=== PATIENT | male | born 1945 | race Caucasian/White ===

== ENCOUNTER 2016-07-16 12:32 | Inpatient (IN) | payer OTHER, MEDICARE ==
[~2016-07-16] VITALS: Ht 172.7 cm; Wt 98.0 kg
[2016-07-16 12:33] VITALS: BP 163/77; PULSE 65; RESP 16; TEMP 98.5; O2SAT 98
--- NOTE | 2016-07-16 12:45 | PD ---
Physical Exam Time Seen by Provider: 12:43 Narrative 71 y/o male presents for evaluation of elevated total bilirubin, elevated liver enzymes. Has had dark colored urine for the past several days, saw PCP yesterday, had labwork done. No known hx of liver dz. VSS Seen at triage desk. Awaiting bed placement. Data Data Last Documented VS Vital Signs Date Time Temp Pulse Resp B/P Pulse Ox O2 Delivery O2 Flow Rate FiO2 07/16/16 12:33 98.5 65 16 163/77 98 MDM Medical Record Reviewed: Yes Supervised Visit with JYOTI: Jean Hatch July 16, 2016 12:45
[2016-07-16 14:26] LABS: AUTOMATED NEUTROPHIL # 4.3 TH/MM3 (1.8-7.7); BASOPHIL # 0.1 TH/MM3 (0-0.2); BASOPHIL % 1.5 % (0.0-2.0); EOSINOPHIL # 0.3 TH/MM3 (0-0.4); EOSINOPHIL % 3.6 % (0.0-4.0); HEMATOCRIT 41.6 % (39.0-51.0); HEMO FLAGS DIFF FINAL; LYMPH % 21.8 % (9.0-44.0); LYMPHOCYTE # 1.6 TH/MM3 (1.0-4.8); MEAN CELL VOLUME 84.3 FL (80.0-100.0); MEAN CORPUSCULAR HEMOGLOBIN 28.5 PG (27.0-34.0); MEAN CORPUSCULAR HGB CONC 33.8 % (32.0-36.0); MONO % 14.1 % (0.0-8.0); PLATELET COUNT 225 TH/MM3 (150-450); RED BLOOD COUNT 4.94 MIL/MM3 (4.50-5.90); RED CELL DISTRIBUTION WIDTH 17.8 % (11.6-17.2); WHITE BLOOD COUNT 7.3 TH/MM3 (4.0-11.0)
[2016-07-16] MEDS ORDERED: LORazepam 2 MG/ML VIAL IV PUSH ONE (14:30)
[2016-07-16 14:35] LABS: APTT (PATIENT) 30.4 SEC (24.3-30.1); INTERNATIONAL NORMALIZED RATIO 1.1 RATIO
[2016-07-16 14:59] LABS: ALKALINE PHOSPHATASE 254 U/L (45-117); ALT (GPT) 1157 U/L (12-78); ANION GAP 10 MEQ/L (5-15); AST (GOT) 1238 U/L (15-37); BICARBONATE 23.5 MEQ/L (21.0-32.0); BLOOD UREA NITROGEN 22 MG/DL (7-18); CHLORIDE 100 MEQ/L (98-107); GLOMERULAR FILTRATION RATE 39 ML/MIN (>89); INDIRECT BILIRUBIN 4.1 MG/DL (0.0-0.8); SODIUM (NA) 133 MEQ/L (136-145); TOTAL BILIRUBIN ADULT 8.7 MG/DL (0.2-1.0)
--- NOTE | 2016-07-16 15:00 | RADRPT ---
EXAM DATE/TIME: 07/16/2016 14:29 [facility] COMPARISON: No previous studies available for comparison. INDICATIONS : Jaundice. Epigastric pain. ORAL CONTRAST: No oral contrast ingested. RADIATION DOSE: 10.27 CTDIvol (mGy) MEDICAL HISTORY : Cardiovascular disease. Hypertension. Diabetes mellitus type 2. SURGICAL HISTORY : CABG ENCOUNTER: Initial ACUITY: 1 day PAIN SCALE: 2/10 LOCATION: TECHNIQUE: Volumetric scanning of the abdomen and pelvis was performed. Using automated exposure control and ad justment of the mA and/or kV according to patient size, radiation dose was kept as low as reasonably achievable to obtain optimal diagnostic quality images. FINDINGS: LOWER LUNGS: The visualized lower lungs are clear. The heart is normal in size. Coronary artery atherosclerotic ca lcifications. LIVER: Homogeneous density without lesion. There is no dilation of the biliary tree. No calcified gallston es. The gallbladder is decompressed. SPLEEN: Normal size without lesion. PANCREAS: Within normal limits. KIDNEYS: Normal in size and shape. There is no mass, stone, or hydronephrosis. ADRENAL GLANDS: Within normal limits. VASCULAR: There is no aortic aneurysm. BOWEL/MESENTERY: A 1 cm fat containing structure is seen at the level of the ampulla within the duodenum. No mass effe ct. No obstruction of the biliary tree. The bowel structures show no dilatation. Colon, small bowel, and stomach are unremarkable. No free air or free fluid. ABDOMINAL WALL: Within normal limits. RETROPERITONEUM: There is no lymphadenopathy. BLADDER: No wall thickening or mass. REPRODUCTIVE: Within normal limits. INGUINAL: There is no lymphadenopathy or hernia. MUSCULOSKELETAL: Within normal limits for patient age. CONCLUSION: 1. No dilatation of the biliary tree. 2. 1 cm fat containing structure associated with the duodenum near the ampulla. This could relate to ingested material such as a pill fragment or could relate to a lipoma of the ampulla. No obstruction of the biliary tree or bowel is seen. Masoud José Jr., MD on July 16, 2016 at 14:53 Board Certified Radiologist. This report was verified electronically.
--- NOTE | 2016-07-16 15:44 | PD ---
HPI Chief Complaint: Abnormal Results Time Seen by Provider: 14:24 Travel History International Travel<30 days: No Contact w/Intl Traveler<30days: No Traveled to known affect area: No History of Present Illness HPI This is a 71-year-old male who presents to the emergency department with jaundice that's been present for 4 days, constant, associated with nausea and decreased appetite and generalized weakness which has been worsening. He was evaluated by his primary care physician who noted that his bilirubin was in the 7 range. He had a right upper quadrant outpatient ultrasound which demonstrated gallbladder polyps. He was referred here to the emergency department for evaluation. He denies any recent travel out of the country. He says he drinks 2 beers per week. He has no history of IV drug use. He is sexually active with 1 partner over the past 6 months. He denies eating any wild mushrooms. He doesn't use Tylenol. He has had about a 15 pound weight loss over the past several months. PFSH Past Medical History Cardiovascular Problems: Yes Diabetes: Yes Patient Takes Glucophage: Yes Hypertension: Yes Thyroid Disease: Yes Tetanus Vaccination: Unknown Influenza Vaccination: No Past Surgical History Coronary Artery Bypass Graft: Yes (TRIPLE BYPASS) Social History Alcohol Use: Yes (OCCAS) Tobacco Use: No Substance Use: No Allergies-Medications (Allergen,Severity, Reaction): Coded Allergies: No Known Allergies (Unverified , 07/16/16) Review of Systems Except as stated in HPI: all other systems reviewed are Neg Physical Exam Narrative GENERAL:Well appearing, no acute distress SKIN: Jaundiced HEAD: Atraumatic. Normocephalic. EYES: Pupils equal and round. No injection or drainage. Scleral icterus. ENT: Moist mucous membranes NECK: Trachea midline. CARDIOVASCULAR: Regular rate and rhythm. No murmur appreciated. RESPIRATORY: Clear to auscultation. Breath sounds equal bilaterally. GASTROINTESTINAL: Abdomen soft, distended, tender to palpation in the epigastrium with no rebound or guarding. MUSCULOSKELETAL: No obvious deformities. NEUROLOGICAL: Awake and alert. No obvious cranial nerve deficits. Moving all extremities. PSYCHIATRIC: Appropriate mood and affect; insight and judgment normal. Data Data Last Documented VS Vital Signs Date Time Temp Pulse Resp B/P Pulse Ox O2 Delivery O2 Flow Rate FiO2 07/16/16 13:45 60 18 98 Room Air 07/16/16 12:33 98.5 163/77 Orders Complete Blood Count With Diff (07/16/16 13:57) Comprehensive Metabolic Panel (07/16/16 13:57) Prothrombin Time / Inr (Pt) (07/16/16 13:57) Act Partial Throm Time (Ptt) (07/16/16 13:57) Bilirubin Components (07/16/16 13:57) Ct Abd/Pel W/O Iv Contrast (07/16/16 ) Lipase (07/16/16 13:57) Lorazepam Inj (Ativan Inj) (07/16/16 14:30) Tylenol (Acetaminophen) (07/16/16 15:04) Diet Npo (07/16/16 Dinner) Vital Signs (Adult) KISHA.Q4H (07/16/16 15:31) Consult Gastroenterology (07/16/16 ) Ondansetron Inj (Zofran Inj) (07/16/16 15:45) Sodium Chlor 0.9% 1000 Ml Inj (Ns 1000 M (07/16/16 15:45) Comprehensive Metabolic Panel (07/17/16 06:00) Potassium, Serum (K) (07/16/16 15:31) Admit Order (Ed Use Only) (07/16/16 ) Labs Laboratory Tests Test 07/16/16 14:05 White Blood Count 7.3 TH/MM3 Red Blood Count 4.94 MIL/MM3 Hemoglobin 14.1 GM/DL Hematocrit 41.6 % Mean Corpuscular Volume 84.3 FL Mean Corpuscular Hemoglobin 28.5 PG Mean Corpuscular Hemoglobin 33.8 % Concent Red Cell Distribution Width 17.8 % Platelet Count 225 TH/MM3 Mean Platelet Volume 10.0 FL Neutrophils (%) (Auto) 59.0 % Lymphocytes (%) (Auto) 21.8 % Monocytes (%) (Auto) 14.1 % Eosinophils (%) (Auto) 3.6 % Basophils (%) (Auto) 1.5 % Neutrophils # (Auto) 4.3 TH/MM3 Lymphocytes # (Auto) 1.6 TH/MM3 Monocytes # (Auto) 1.0 TH/MM3 Eosinophils # (Auto) 0.3 TH/MM3 Basophils # (Auto) 0.1 TH/MM3 CBC Comment DIFF FINAL Differential Comment Prothrombin Time 12.0 SEC Prothromb Time International 1.1 RATIO Ratio Activated Partial 30.4 SEC Thromboplast Time Sodium Level 133 MEQ/L Potassium Level 6.0 MEQ/L Chloride Level 100 MEQ/L Carbon Dioxide Level 23.5 MEQ/L Anion Gap 10 MEQ/L Blood Urea Nitrogen 22 MG/DL Creatinine 1.75 MG/DL Estimat Glomerular Filtration 39 ML/MIN Rate Random Glucose 237 MG/DL Calcium Level 8.3 MG/DL Total Bilirubin 8.7 MG/DL Direct Bilirubin 4.6 MG/DL Indirect Bilirubin 4.1 MG/DL Aspartate Amino Transf 1238 U/L (AST/SGOT) Alanine Aminotransferase 1157 U/L (ALT/SGPT) Alkaline Phosphatase 254 U/L Total Protein 8.7 GM/DL Albumin 2.7 GM/DL Lipase 358 U/L MDM Medical Decision Making Medical Screen Exam Complete: Yes Emergency Medical Condition: Yes Interpretation(s) No leukocytosis Hyponatremia Potassium is 6. hemolyzed Creatinine is 1.7 Total bilirubin is 8.7, direct bilirubin is 4.6 and indirect bilirubin is 4.1 AST is 1238 ALT is 1157 Last 24 hours Impressions Abdomen/Pelvis CT 07/16/16 0000 Signed Impressions: Service Date/Time: Saturday, July 16, 2016 14:29 - CONCLUSION: 1. No dilatation of the biliary tree. 2. 1 cm fat containing structure associated with the duodenum near the ampulla. This could relate to ingested material such as a pill fragment or could relate to a lipoma of the ampulla. No obstruction of the biliary tree or bowel is seen. Masoud José Jr., MD Differential Diagnosis Malignancy, viral hepatitis, choledocholithiasis, drug toxicity Narrative Course This is a 71-year-old male who presents to the emergency department with painless jaundice and weight loss. He was placed on a monitor and an IV was established. Labs are obtained which demonstrate some renal insufficiency which appears chronic and elevated bilirubin as well as marked transaminitis in the thousands. Differential includes malignancy versus viral hepatitis. CT imaging is unremarkable. Patient will be admitted for GI consultation. Physician Communication Physician Communication Discussed with Dr. Rodriges Diagnosis Primary Impression: Liver failure Qualified Code: K72.90 - Liver failure without hepatic coma, unspecified chronicity Admitting Information Admitting Physician Requests: Admit Kalyn Read MD July 16, 2016 15:44
[2016-07-16] MEDS ORDERED: DEXTROSE 50% IN WATER 50 ML VIAL(D50) IV PUSH PRN (15:45)
[2016-07-16] MEDS ORDERED: ONDANSETRON HCL 4 MG/2 ML VIAL IV PUSH PRN (15:45)
[2016-07-16] MEDS ORDERED: GLUCAGON 1 MG/ML VIAL OTHER PRN (15:45)
--- NOTE | 2016-07-16 15:50 | HHI.HP ---
[facility] Non-Staff Admission Diagnosis liver failure Diagnoses: (1) Jaundice Diagnosis: Principal Chief Complaint: jaundice Travel History International Travel<30 Days: No Contact w/Intl Traveler <30 Da: No Traveled to Known Affected Are: No History of Present Illness patient is a 71 y/o male with history of CAD, hypertension and diabetes mellitus who presented to ER with jaundice. he says that he noticed that ' his color was yellowish' a few days ago. he was seen by his PCP and had some blood work done. he was called and advised to come to ER by his PCP after he was found to have elevated LFT's. he says that he's had on and off abdominal pain for the past ten days. pain is periumbilical and with no radiation. pain is associated with occasional nausea and emesis. he denies any fever, chills. no recent trips. Review of Systems Constitutional: DENIES: Fever, Weight loss, Chills, Night Sweats Eyes: DENIES: Blurred vision, Diplopia, Vision loss, Double Vision Ears, nose, mouth, throat: DENIES: Tinnitus, Vertigo, Throat pain, Epistaxis Respiratory: DENIES: Apneas, Cough, Snoring, Wheezing, Hemoptysis, Sputum production, Shortness of breath Cardiovascular: DENIES: Chest pain, Palpitations, Syncope, Dyspnea on Exertion , PND, Lower Extremity Edema, Orthopnea, Claudication Gastrointestinal: COMPLAINS OF: Abdominal pain, Nausea, DENIES: Black stools, Bloody stools, Constipation, Diarrhea, Vomiting, Difficulty Swallowing, Anorexia Genitourinary: DENIES: Urinary frequency, Urgency, Hematuria, Dysuria Musculoskeletal: DENIES: Joint pain, Muscle aches, Stiffness, Joint Swelling Integumentary: DENIES: Rash Neurologic: DENIES: Abnormal gait, Headache, Localized weakness, Paresthesias, Seizures, Speech Problems, Tremor, Poor Balance Psychiatric: DENIES: Anxiety, Confusion, Mood changes, Depression, Hallucinations, Agitation, Suicidal Ideation, Homicidal Ideation, Delusions Past Family Social History Past Medical History CAD hypertension diabetes Past Surgical History CABG Reported Medications to be verified. Allergies: Coded Allergies: No Known Allergies (Unverified , 07/16/16) Active Ordered Medications Current Medications Lorazepam (Ativan Inj) 1 mg ONCE ONCE IV PUSH Last administered on 07/16/16t 14 :42; Start 07/16/16 at 14:30; Stop 07/16/16 at 14:31; Status DC Ondansetron HCl 4 mg 4 mg Q8HR PRN IV PUSH NAUSEA; Start 07/16/16 at 15:45 Sodium Chloride (NS 1000 ml Inj) 1,000 ml @ 100 mls/hr Q10H IV ; Start 07/16/16 at 15:45 Social History quit smoking years ago. drinks occasionally. Physical Exam Vital Signs Vital Signs Date Time Temp Pulse Resp B/P Pulse Ox O2 Delivery O2 Flow Rate FiO2 07/16/16 13:45 60 18 98 Room Air 07/16/16 12:33 98.5 65 16 163/77 98 Physical Exam GENERAL: This is a well-nourished, well-developed patient, in no apparent distress. SKIN: No rashes, ecchymoses or lesions. Cool and dry. HEAD: Atraumatic. Normocephalic. No temporal or scalp tenderness. EYES: Pupils equal round and reactive. Extraocular motions intact. No scleral icterus. No injection or drainage. ENT: Nose without bleeding, purulent drainage or septal hematoma. Throat without erythema, tonsillar hypertrophy or exudate. Uvula midline. Airway patent. NECK: Trachea midline. No JVD or lymphadenopathy. Supple, nontender, no meningeal signs. CARDIOVASCULAR: Regular rate and rhythm without murmurs, gallops, or rubs. RESPIRATORY: Clear to auscultation. Breath sounds equal bilaterally. No wheezes , rales, or rhonchi. GASTROINTESTINAL: Abdomen soft, mild periumbilical tenderness, nondistended. No hepato-splenomegaly, or palpable masses. No guarding. MUSCULOSKELETAL: Extremities without clubbing, cyanosis, or edema. No joint tenderness, effusion, or edema noted. No calf tenderness. Negative Homans sign bilaterally. NEUROLOGICAL: Awake and alert. Cranial nerves II through XII intact. Motor and sensory grossly within normal limits. Five out of 5 muscle strength in all muscle groups. Normal speech. Laboratory Laboratory Tests Test 07/16/16 14:05 White Blood Count 7.3 Red Blood Count 4.94 Hemoglobin 14.1 Hematocrit 41.6 Mean Corpuscular Volume 84.3 Mean Corpuscular Hemoglobin 28.5 Mean Corpuscular Hemoglobin 33.8 Concent Red Cell Distribution Width 17.8 Platelet Count 225 Mean Platelet Volume 10.0 Neutrophils (%) (Auto) 59.0 Lymphocytes (%) (Auto) 21.8 Monocytes (%) (Auto) 14.1 Eosinophils (%) (Auto) 3.6 Basophils (%) (Auto) 1.5 Neutrophils # (Auto) 4.3 Lymphocytes # (Auto) 1.6 Monocytes # (Auto) 1.0 Eosinophils # (Auto) 0.3 Basophils # (Auto) 0.1 CBC Comment DIFF FINAL Differential Comment Prothrombin Time 12.0 Prothromb Time International 1.1 Ratio Activated Partial 30.4 Thromboplast Time Sodium Level 133 Potassium Level 6.0 Chloride Level 100 Carbon Dioxide Level 23.5 Anion Gap 10 Blood Urea Nitrogen 22 Creatinine 1.75 Estimat Glomerular Filtration 39 Rate Random Glucose 237 Calcium Level 8.3 Total Bilirubin 8.7 Direct Bilirubin 4.6 Indirect Bilirubin 4.1 Aspartate Amino Transf 1238 (AST/SGOT) Alanine Aminotransferase 1157 (ALT/SGPT) Alkaline Phosphatase 254 Total Protein 8.7 Albumin 2.7 Lipase 358 Result Diagram: 07/16/16 1405 07/16/16 1405 Imaging Last Impressions Abdomen/Pelvis CT 07/16/16 0000 Signed Impressions: Service Date/Time: Saturday, July 16, 2016 14:29 - CONCLUSION: 1. No dilatation of the biliary tree. 2. 1 cm fat containing structure associated with the duodenum near the ampulla. This could relate to ingested material such as a pill fragment or could relate to a lipoma of the ampulla. No obstruction of the biliary tree or bowel is seen. Masoud José Jr., MD Assessment and Plan Assessment and Plan A/P - jaundice will consult GI- repeat LFT's in am and check hepatitis panel. tylenol level pending. -renal insufficiency with unknown duration; start IV fluid and monitor the renal function -hyperkalemia; repeat the potassium today -CAD/ hypertension and diabetes mellitus will verify and resume home meds as appropriate. start accu-check with SSI -DVT prophylaxis with SCD's Discussed Condition With ER physician and the patient. Physician Certification 2 Midnight Certification Type: Admission for Inpatient Services Order for Inpatient Services The services are ordered in accordance with Medicare regulations or non- Medicare payer requirements, as applicable. In the case of services not specified as inpatient-only, they are appropriately provided as inpatient services in accordance with the 2-midnight benchmark. Estimated LOS (days): 2 days is the estimated time the patient will need to remain in the hospital, assuming treatment plan goals are met and no additional complications. Post-Hospital Plan: Home Kassandra García MD July 16, 2016 15:50
[2016-07-16] MEDS: SODIUM CHLOR 0.9% 1000 ML INJ 1,000 ML IV SCH (15:55)
[2016-07-16] MEDS: INSULIN ASPART SUPPLEMENTAL SCALE SQ SCH ×2 (16:00→21:00)
[2016-07-16 16:01] VITALS: BP 146/78; PULSE 59; RESP 18; O2SAT 98
[2016-07-16] MEDS ORDERED: GLIM2TAB PO (16:44)
[2016-07-16] MEDS ORDERED: MIRT30TA PO (16:44)
[2016-07-16] MEDS ORDERED: METO50TA PO (16:44)
[2016-07-16] MEDS ORDERED: ASPI81CH CHEW (16:44)
[2016-07-16] MEDS ORDERED: ATOR40TA16 PO (16:44)
[2016-07-16] MEDS ORDERED: LEVO25TA4 PO (16:44)
[2016-07-16] MEDS ORDERED: METF500T PO (16:44)
[2016-07-16] MEDS ORDERED: ENAL10TA PO (16:44)
[2016-07-16] MEDS ORDERED: PANT40TA3 PO (16:44)
[2016-07-16 18:00] VITALS: BP 169/81; PULSE 57; RESP 20; TEMP 98.6; O2SAT 98
[2016-07-16 20:00] VITALS: BP_SYST 149; BP_DIAS 62; BP_DIAS 72; PULSE 59; RESP 20; TEMP 99.1; O2SAT 96
--- NOTE | 2016-07-16 20:12 | MB ---
cc: FELIX LEON MD, MOHAMMADREZA MD DATE OF CONSULTATION 07/16/16 Patient viral [facility] REASON FOR CONSULTATION Elevated liver function tests and icterus. HISTORY OF PRESENT ILLNESS Mr. Graham is a 71-year-old with no previous history of liver disease who presents with three-day history of jaundice and dark colored urine. He says for this he called his PCP's office. Blood work was done which revealed significant elevation in liver function test and he was referred to the hospital. He says he is not really having any abdominal pain. He is having no other GI symptoms. He says he has lost some weight, which he does not think is intentional. PAST MEDICAL HISTORY 1. Coronary artery disease, 2. Hypertension, 3. Diabetes, 4. Elevated cholesterol. PAST SURGICAL HISTORY Coronary artery bypass surgery. ALLERGIES None documented MEDICATIONS 1. Lorazepam. 2. Zofran. 3. One aspirin daily 4. Cholesterol medicine None of his medicines have changed recently. I do not have his exact list of medicines at this time. SOCIAL HISTORY Drinks two beers daily. No tobacco reported. PHYSICAL EXAMINATION GENERAL: A well-nourished man in no apparent distress. He is deeply icteric but otherwise asymptomatic. HEAD/NECK: Icteric sclerae. CHEST: Bilateral air entry with rales. ABDOMEN: Soft, obese, nontender. No hepatosplenomegaly. Bowel sounds are present. PORTFOLIO DIRECTOR: Exam is nonfocal. RECTAL: Exam deferred at this time. LABORATORY DATA Potassium of 4.3, creatinine 1.7, total bilirubin 8.7, AST 1238, ALT 1157, alkaline phosphatase 254, lipase 358, INR 1.1, platelets 225. Hepatic serologies are pending. IMAGING STUDIES CT of the abdomen and pelvis reveals no dilatation of the biliary tree. The liver itself appears normal. IMPRESSION Acute hepatitis. RECOMMENDATIONS Etiology of his liver function elevation is not clear. There is no history of any substance abuse. He does not drink significant alcohol. Acute viral hepatitis needs to be ruled out. AAYUSH panel has also been ordered. We will also check for CMV and EBV viruses. Acetaminophen levels are undetectable. Ultrasound of the liver has also been ordered. Continue to monitor labs carefully. We will follow with you. Thank you for this referral. MD HERMINIO Graham /5:44 PM /8:04 PM
[2016-07-16] MEDS: ENALAPRIL MALEATE 10 MG TAB PO SCH (20:19)
[2016-07-16] MEDS: METOPROLOL TARTRATE 50 MG TAB PO SCH (20:19)
[2016-07-17] VITALS (7 sets, daily range): BP systolic 140–165; BP diastolic 66–82; PULSE 48–66; RESP 16–20; TEMP 97.9–98.7; O2SAT 95–97
[2016-07-17] MEDS: SODIUM CHLOR 0.9% 1000 ML INJ 1,000 ML IV SCH ×3 (02:10→22:44)
[2016-07-17] MEDS: LEVOTHYROXINE SODIUM 25 MCG TAB PO SCH (06:58)
[2016-07-17] MEDS: INSULIN ASPART SUPPLEMENTAL SCALE SQ SCH ×4 (06:59→22:44)
[2016-07-17 08:16] LABS: ALKALINE PHOSPHATASE 184 U/L (45-117); ALT (GPT) 1034 U/L (12-78); ANION GAP 9 MEQ/L (5-15); AST (GOT) 1284 U/L (15-37); BICARBONATE 22.4 MEQ/L (21.0-32.0); BLOOD UREA NITROGEN 19 MG/DL (7-18); CHLORIDE 108 MEQ/L (98-107); GLOMERULAR FILTRATION RATE 48 ML/MIN (>89); POTASSIUM 3.9 MEQ/L (3.5-5.1); SODIUM (NA) 139 MEQ/L (136-145); TOTAL BILIRUBIN ADULT 7.5 MG/DL (0.2-1.0)
--- NOTE | 2016-07-17 08:44 | HHI.PR ---
Subjective Remarks resting comfortably with no acute distress. no abdominal pain, nausea or vomiting. Objective Vitals Vital Signs Date Time Temp Pulse Resp B/P Pulse Ox O2 Delivery O2 Flow Rate FiO2 07/17/16 04:00 98.7 58 20 140/75 97 07/17/16 00:00 98.6 52 20 165/81 97 07/16/16 20:00 99.1 59 20 149/62 96 07/16/16 20:00 99.1 59 20 149/72 96 07/16/16 18:00 98.6 57 20 169/81 98 07/16/16 16:01 59 18 146/78 98 Room Air 07/16/16 13:45 60 18 98 Room Air 07/16/16 12:33 98.5 65 16 163/77 98 I/O 07/16/16 07/16/16 07/16/16 07/17/16 07/17/16 07/17/16 07:00 15:00 23:00 07:00 15:00 23:00 Intake Total 676 ml 807 ml Output Total 1150 ml Balance 676 ml -343 ml Intake IV Total 676 ml 807 ml Output Urine Total 1150 ml Result Diagram: 07/16/16 1405 07/17/16 0700 Imaging Last Impressions Abdomen/Pelvis CT 07/16/16 0000 Signed Impressions: Service Date/Time: Saturday, July 16, 2016 14:29 - CONCLUSION: 1. No dilatation of the biliary tree. 2. 1 cm fat containing structure associated with the duodenum near the ampulla. This could relate to ingested material such as a pill fragment or could relate to a lipoma of the ampulla. No obstruction of the biliary tree or bowel is seen. Masoud José Jr., MD Objective Remarks GENERAL: This is a well-nourished, well-developed patient, in no apparent distress. CARDIOVASCULAR: Regular rate and regular rhythm without murmurs, gallops, or rubs. RESPIRATORY: Clear to auscultation. Breath sounds equal bilaterally. No wheezes , rales, or rhonchi. GASTROINTESTINAL: Abdomen soft, non-tender, nondistended. Normal, active bowel sounds MUSCULOSKELETAL: Extremities without clubbing, cyanosis, or edema. NEURO: Alert & Oriented x4 to person, place, time, situation. Moves all ext x4 Procedures none Medications and IVs Current Medications Lorazepam (Ativan Inj) 1 mg ONCE ONCE IV PUSH Last administered on 07/16/16 14 :42; Start 07/16/16 at 14:30; Stop 07/16/16 at 14:31; Status DC Ondansetron HCl 4 mg 4 mg Q8HR PRN IV PUSH NAUSEA; Start 07/16/16 at 15:45 Sodium Chloride (NS 1000 ml Inj) 1,000 ml @ 100 mls/hr Q10H IV Last administered on 07/17/16 02:10; Start 07/16/16 at 15:45 Dextrose (D50w (Vial) Inj) 25 ml UNSCH PRN IV PUSH HYPOGLYCEMIA-SEE COMMENTS; Start 07/16/16 at 15:45 Glucagon (Glucagon Inj) 1 mg UNSCH PRN OTHER HYPOGLYCEMIA-SEE COMMENTS; Start 07/16/16 at 15:45 Insulin Aspart (NovoLOG SUPPLEMENTAL SCALE) 1 ACHS SLIDING SCALE SQ ; Start 07/16/16 at 16:00 Enalapril Maleate (Vasotec) 10 mg BID PO Last administered on 07/16/16 20:19; Start 07/16/16 at 21:00 Levothyroxine Sodium (Synthroid) 25 mcg DAILY@06 PO Last administered on 06:58; Start 07/17/16 at 06:00 Metoprolol Tartrate (Lopressor) 50 mg BID PO Last administered on 07/16/16 20: 19; Start 07/16/16 at 21:00 Pantoprazole Sodium (Protonix) 40 mg DAILY PO ; Start 07/17/16 at 09:00 A/P Assessment and Plan A/P - jaundice hepatitis panel and abdominal sonogram pending- GI evaluation appreciated. -renal insufficiency with unknown duration; improved- continue to monitor the renal function. -hyperkalemia; resolved. -CAD/ hypertension ; resume home meds- will hold statin due to elevated LFT's -diabetes mellitus; hold metformin- accu-check with SSI -DVT prophylaxis with SCD's Kassandra García MD July 17, 2016 08:44
--- NOTE | 2016-07-17 09:10 | RADRPT ---
EXAM DATE/TIME: 07/17/2016 07:56 [facility] COMPARISON: CT ABDOMEN & PELVIS W/O CONTRAST, July 16, 2016, 14:29. INDICATIONS : Jaundice. MEDICAL HISTORY : Hypertension. Thyroid disease. Abdominal pain. Diabetes. SURGICAL HISTORY : CABG. ENCOUNTER: Initial ACUITY: 2 days PAIN SCORE: 0/10 LOCATION: Bilateral upper quadrant MEASUREMENTS: LIVER: 17.2 cm length COMMON DUCT: 4 mm RIGHT KIDNEY: 11.0 x 5.2 x 5.3 cm SPLEEN: 14.2 cm length FINDINGS: LIVER: Normal echotexture without focal lesion or ductal dilatation. COMMON DUCT: No intraluminal mass or stone visualized. GALLBLADDER: Minimally distended. Mild wall thickening. 4 mm polyp or wall adherent debris in the fundus region. N o pericholecystic fluid. PANCREAS: Not well seen. RIGHT KIDNEY: No hydronephrosis, stone or mass. SPLEEN: No focal lesion. CONCLUSION: Abnormal gallbladder appearance. Otherwise focally unremarkable Sinan Landrum MD on July 17, 2016 at 9:05 Board Certified Radiologist. This report was verified electronically.
[2016-07-17] MEDS: ENALAPRIL MALEATE 10 MG TAB PO SCH ×2 (09:36→22:43)
[2016-07-17] MEDS: METOPROLOL TARTRATE 50 MG TAB PO SCH ×2 (09:36→22:44)
[2016-07-17] MEDS: PANTOPRAZOLE SOD 40 MG DELAYED RELEASE TAB PO SCH (09:36)
--- NOTE | 2016-07-17 12:18 | HHI.GIFU ---
Subjective Remarks Resting in bed. No nausea, vomiting, headache, abdominal pain, diarrhea, or flu -like symptoms. He does note that he was told by a friend on Friday, that he appeared yellow. No recent shellfish, tattoos, new sexual partners. No new meds or herbal supplements. (Aracelis Lakhani) Objective Vitals I&O Vital Signs Date Time Temp Pulse Resp B/P Pulse Ox O2 Delivery O2 Flow Rate FiO2 07/17/16 08:00 98.0 55 18 157/81 95 07/17/16 04:00 98.7 58 20 140/75 97 07/17/16 00:00 98.6 52 20 165/81 97 07/16/16 20:00 99.1 59 20 149/62 96 07/16/16 20:00 99.1 59 20 149/72 96 07/16/16 18:00 98.6 57 20 169/81 98 07/16/16 16:01 59 18 146/78 98 Room Air 07/16/16 13:45 60 18 98 Room Air 07/16/16 12:33 98.5 65 16 163/77 98 I/O 07/16/16 07/16/16 07/16/16 07/17/16 07/17/16 07/17/16 07:00 15:00 23:00 07:00 15:00 23:00 Intake Total 676 ml 807 ml Output Total 1150 ml Balance 676 ml -343 ml Intake IV Total 676 ml 807 ml Output Urine Total 1150 ml Laboratory Laboratory Tests Test 07/16/16 07/16/16 07/17/16 14:05 16:00 07:00 White Blood Count 7.3 Red Blood Count 4.94 Hemoglobin 14.1 Hematocrit 41.6 Mean Corpuscular Volume 84.3 Mean Corpuscular Hemoglobin 28.5 Mean Corpuscular Hemoglobin 33.8 Concent Red Cell Distribution Width 17.8 Platelet Count 225 Mean Platelet Volume 10.0 Neutrophils (%) (Auto) 59.0 Lymphocytes (%) (Auto) 21.8 Monocytes (%) (Auto) 14.1 Eosinophils (%) (Auto) 3.6 Basophils (%) (Auto) 1.5 Neutrophils # (Auto) 4.3 Lymphocytes # (Auto) 1.6 Monocytes # (Auto) 1.0 Eosinophils # (Auto) 0.3 Basophils # (Auto) 0.1 CBC Comment DIFF FINAL Differential Comment Prothrombin Time 12.0 Prothromb Time International 1.1 Ratio Activated Partial 30.4 Thromboplast Time Sodium Level 133 139 Potassium Level 6.0 4.3 3.9 Chloride Level 100 108 Carbon Dioxide Level 23.5 22.4 Anion Gap 10 9 Blood Urea Nitrogen 22 19 Creatinine 1.75 1.45 Estimat Glomerular Filtration 39 48 Rate Random Glucose 237 78 Calcium Level 8.3 8.2 Total Bilirubin 8.7 7.5 Direct Bilirubin 4.6 Indirect Bilirubin 4.1 Aspartate Amino Transf 1238 1284 (AST/SGOT) Alanine Aminotransferase 1157 1034 (ALT/SGPT) Alkaline Phosphatase 254 184 Total Protein 8.7 7.1 Albumin 2.7 2.4 Lipase 358 Acetaminophen Level LESS THAN 2.0 Imaging Last Impressions Liver Ultrasound 07/17/16 0000 Signed Impressions: Service Date/Time: Sunday, July 17, 2016 07:56 - CONCLUSION: Abnormal gallbladder appearance. Otherwise focally unremarkable Sinan Landrum MD Abdomen/Pelvis CT 07/16/16 0000 Signed Impressions: Service Date/Time: Saturday, July 16, 2016 14:29 - CONCLUSION: 1. No dilatation of the biliary tree. 2. 1 cm fat containing structure associated with the duodenum near the ampulla. This could relate to ingested material such as a pill fragment or could relate to a lipoma of the ampulla. No obstruction of the biliary tree or bowel is seen. Masoud José Jr., MD Physical Exam HEENT: Normocephalic; atraumatic; no jaundice. CHEST: CTA CARDIAC: RRR ABDOMEN: Soft, nondistended, nontender; no hepatosplenomegaly; bowel sounds are present in all four quadrants. EXTREMITIES: No clubbing, cyanosis, or edema. SKIN: Normal; no rash; no jaundice. MBA INTERNSHIP: No focal deficits; alert and oriented times three. (Aracelis Lakhani) Assessment and Plan Plan ASSESSMENT: - Acute hepatitis, unclear etiology. Abdomen/Pelvis CT (07/16/16)----> 1. No dilatation of the biliary tree. 2. 1 cm fat containing structure associated with the duodenum near the ampulla. This could relate to ingested material such as a pill fragment or could relate to a lipoma of the ampulla. No obstruction of the biliary tree or bowel is seen. Liver US (07/17/16)----> Abnormal gallbladder appearance. Otherwise focally unremarkable. No hypotensive episodes. Hepatitis panel pending, CMV pending, AAYUSH pending. No new medications, no herbal supplements, no new tattoos, shellfish, new sexual partners. Is on a statin. Denies any flu-like symptoms, n/v, abdominal pain, diarrhea. Only symptoms is that he has been weak. Will get CPK and await liver workup. T. Bili 7.5, AST 1284, ALT 1034 , Alk Phosph 184- essentially unchanged. Statin on hold. If no improvement and liver workup negative, consider liver biopsy. PLAN: - SAURABH - Await AAYUSH, Hepatitis panel - AFP - AMA, ASMA - Alpha 1 Antitrypsin, Ceruloplasmin - Ferritin, Iron saturation - Monitor LFTs. - Avoid hepatotoxins. - If not improvement and liver workup negative, consider liver biopsy - Supportive care - Further recommendations to follow based on results of above - Pt seen and examined by Dr. Juan and myself and this note is written on his behalf (Aracelis Lakhani) Physician Comments Seen and examined with commodities broker, Unclear elevation of LFTs. Asymptomatic. Young in progress for liver disease. May need liver biopsy. MRCP ordered. (Dahlia Juan MD) Aracelis Lakhani July 17, 2016 12:18 Dahlia Juan MD July 17, 2016 13:38
[2016-07-17 14:27] LABS: CREATINE KINASE 9123 U/L (39-308); FERRITIN 3006 NG/ML (26-388); TRANSFERRIN IRON PROFILE 166 MG/DL (200-360)
[2016-07-17 14:40] LABS: CKMB 58.5 NG/ML (0.5-3.6)
[2016-07-18 03:57] VITALS: BP 115/58; PULSE 56; RESP 16; TEMP 97.8; O2SAT 97
[2016-07-18] MEDS: LEVOTHYROXINE SODIUM 25 MCG TAB PO SCH (05:55)
[2016-07-18] MEDS: INSULIN ASPART SUPPLEMENTAL SCALE SQ SCH ×4 (05:57→22:27)
[2016-07-18 07:43] LABS: ALT (GPT) 942 U/L (12-78); ANION GAP 6 MEQ/L (5-15); BLOOD UREA NITROGEN 18 MG/DL (7-18); CHLORIDE 107 MEQ/L (98-107); GLOMERULAR FILTRATION RATE 47 ML/MIN (>89); POTASSIUM 4.2 MEQ/L (3.5-5.1); SODIUM (NA) 137 MEQ/L (136-145)
[2016-07-18 07:48] LABS: ALKALINE PHOSPHATASE 183 U/L (45-117); AST (GOT) 1152 U/L (15-37); TOTAL BILIRUBIN ADULT 7.8 MG/DL (0.2-1.0)
[2016-07-18 08:00] VITALS: BP 114/63; PULSE 59; RESP 20; TEMP 97.9; O2SAT 96
[2016-07-18] MEDS: ENALAPRIL MALEATE 10 MG TAB PO SCH ×2 (08:09→22:25)
[2016-07-18] MEDS: PANTOPRAZOLE SOD 40 MG DELAYED RELEASE TAB PO SCH (08:09)
[2016-07-18] MEDS: METOPROLOL TARTRATE 50 MG TAB PO SCH ×2 (08:09→22:25)
[2016-07-18] MEDS: SODIUM CHLOR 0.9% 1000 ML INJ 1,000 ML IV SCH ×2 (08:24→17:45)
--- NOTE | 2016-07-18 09:19 | HHI.PR ---
Subjective Remarks resting comfortably with no distress. no abdominal pain, nausea or vomiting. d/w the RN. Objective Vitals Vital Signs Date Time Temp Pulse Resp B/P Pulse Ox O2 Delivery O2 Flow Rate FiO2 07/18/16 08:00 97.9 59 20 114/63 96 07/18/16 03:57 Room Air 07/18/16 03:57 97.8 56 16 115/58 97 07/17/16 23:35 97.9 55 16 159/71 95 07/17/16 23:35 Room Air 07/17/16 19:38 98.3 55 16 156/74 96 07/17/16 19:38 Room Air 07/17/16 16:00 98.0 66 18 152/66 95 07/17/16 12:00 98.3 48 20 163/82 97 I/O 07/17/16 07/17/16 07/17/16 07/18/16 07/18/16 07/18/16 07:00 15:00 23:00 07:00 15:00 23:00 Intake Total 807 ml 960 ml 240 ml 240 ml Output Total 1150 ml 600 ml 200 ml 550 ml Balance -343 ml 360 ml 40 ml -310 ml Intake Oral 960 ml 240 ml 240 ml IV Total 807 ml Output Urine Total 1150 ml 600 ml 200 ml 550 ml # Voids 1 # Bowel Movements 1 1 0 Result Diagram: 07/16/16 1405 07/18/16 0622 Imaging Last Impressions Liver Ultrasound 07/17/16 0000 Signed Impressions: Service Date/Time: Sunday, July 17, 2016 07:56 - CONCLUSION: Abnormal gallbladder appearance. Otherwise focally unremarkable Sinan Landrum MD Abdomen/Pelvis CT 07/16/16 0000 Signed Impressions: Service Date/Time: Saturday, July 16, 2016 14:29 - CONCLUSION: 1. No dilatation of the biliary tree. 2. 1 cm fat containing structure associated with the duodenum near the ampulla. This could relate to ingested material such as a pill fragment or could relate to a lipoma of the ampulla. No obstruction of the biliary tree or bowel is seen. Masoud José Jr., MD Objective Remarks GENERAL: This is a well-nourished, well-developed patient, in no apparent distress. CARDIOVASCULAR: Regular rate and regular rhythm without murmurs, gallops, or rubs. RESPIRATORY: Clear to auscultation. Breath sounds equal bilaterally. No wheezes , rales, or rhonchi. GASTROINTESTINAL: Abdomen soft, non-tender, nondistended. Normal, active bowel sounds MUSCULOSKELETAL: Extremities without clubbing, cyanosis, or edema. NEURO: Alert & Oriented x4 to person, place, time, situation. Moves all ext x4 Procedures none Medications and IVs Current Medications Lorazepam (Ativan Inj) 1 mg ONCE ONCE IV PUSH Last administered on 07/16/16 14 :42; Start 07/16/16 at 14:30; Stop 07/16/16 at 14:31; Status DC Ondansetron HCl 4 mg 4 mg Q8HR PRN IV PUSH NAUSEA; Start 07/16/16 at 15:45 Sodium Chloride (NS 1000 ml Inj) 1,000 ml @ 100 mls/hr Q10H IV Last administered on 07/18/16 08:24; Start 07/16/16 at 15:45 Dextrose (D50w (Vial) Inj) 25 ml UNSCH PRN IV PUSH HYPOGLYCEMIA-SEE COMMENTS; Start 07/16/16 at 15:45 Glucagon (Glucagon Inj) 1 mg UNSCH PRN OTHER HYPOGLYCEMIA-SEE COMMENTS; Start 07/16/16 at 15:45 Insulin Aspart (NovoLOG SUPPLEMENTAL SCALE) 1 ACHS SLIDING SCALE SQ Last administered on 07/17/16 22:44; Start 07/16/16 at 16:00 Enalapril Maleate (Vasotec) 10 mg BID PO Last administered on 07/18/16 08:09; Start 07/16/16 at 21:00 Levothyroxine Sodium (Synthroid) 25 mcg DAILY@06 PO Last administered on 05:55; Start 07/17/16 at 06:00 Metoprolol Tartrate (Lopressor) 50 mg BID PO Last administered on 07/18/16 08: 09; Start 07/16/16 at 21:00 Pantoprazole Sodium (Protonix) 40 mg DAILY PO Last administered on 07/18/16 08: 09; Start 07/17/16 at 09:00 A/P Assessment and Plan A/P - jaundice hepatitis panel suggestive of acute hepatitis B- GI following. -renal insufficiency with unknown duration; improved- continue to monitor the renal function. -hyperkalemia; resolved. -CAD/ hypertension ; resume home meds- continue to hold statin due to elevated LFT's -diabetes mellitus; hold metformin- accu-check with SSI -DVT prophylaxis with SCD's Discharge Planning awaiting GI follow-up. Kassandra García MD July 18, 2016 09:19
[2016-07-18 12:51] VITALS: BP 158/58; PULSE 56; RESP 18; TEMP 97.6; O2SAT 97
[2016-07-18 14:29] LABS: CKMB 49.2 NG/ML (0.5-3.6)
--- NOTE | 2016-07-18 15:25 | HHI.GIFU ---
Subjective Remarks Pt resting comfortably in bed. Asking when he can go home. Denies n/v, abd pain, diarrhea. (Collette Blanco) Objective Vitals I&O Vital Signs Date Time Temp Pulse Resp B/P Pulse Ox O2 Delivery O2 Flow Rate FiO2 07/18/16 12:51 97.6 56 18 158/58 97 07/18/16 08:00 97.9 59 20 114/63 96 07/18/16 03:57 Room Air 07/18/16 03:57 97.8 56 16 115/58 97 07/17/16 23:35 97.9 55 16 159/71 95 07/17/16 23:35 Room Air 07/17/16 19:38 98.3 55 16 156/74 96 07/17/16 19:38 Room Air 07/17/16 16:00 98.0 66 18 152/66 95 I/O 07/17/16 07/17/16 07/17/16 07/18/16 07/18/16 07/18/16 07:00 15:00 23:00 07:00 15:00 23:00 Intake Total 807 ml 960 ml 240 ml 240 ml Output Total 1150 ml 600 ml 200 ml 550 ml Balance -343 ml 360 ml 40 ml -310 ml Intake Oral 960 ml 240 ml 240 ml IV Total 807 ml Output Urine Total 1150 ml 600 ml 200 ml 550 ml # Voids 1 # Bowel Movements 1 1 0 Laboratory Laboratory Tests Test 07/18/16 06:22 Sodium Level 137 Potassium Level 4.2 Chloride Level 107 Carbon Dioxide Level 24.0 Anion Gap 6 Blood Urea Nitrogen 18 Creatinine 1.47 Estimat Glomerular Filtration 47 Rate Random Glucose 137 Calcium Level 8.3 Total Bilirubin 7.8 Aspartate Amino Transf 1152 (AST/SGOT) Alanine Aminotransferase 942 (ALT/SGPT) Alkaline Phosphatase 183 Total Creatine Kinase 7632 Creatine Kinase MB 49.2 Creatine Kinase MB % 0.6 Total Protein 6.7 Albumin 2.2 Imaging Last Impressions Liver Ultrasound 07/17/16 0000 Signed Impressions: Service Date/Time: Sunday, July 17, 2016 07:56 - CONCLUSION: Abnormal gallbladder appearance. Otherwise focally unremarkable Sinan Landrum MD Abdomen/Pelvis CT 07/16/16 0000 Signed Impressions: Service Date/Time: Saturday, July 16, 2016 14:29 - CONCLUSION: 1. No dilatation of the biliary tree. 2. 1 cm fat containing structure associated with the duodenum near the ampulla. This could relate to ingested material such as a pill fragment or could relate to a lipoma of the ampulla. No obstruction of the biliary tree or bowel is seen. Masoud José Jr., MD Physical Exam HEENT: Normocephalic; atraumatic; + icterus. CHEST: CTA CARDIAC: RRR ABDOMEN: Soft, obese, nontender; no hepatosplenomegaly; bowel sounds are present in all four quadrants. EXTREMITIES: No clubbing, cyanosis, or edema. SKIN: Normal; no rash; +jaundice. 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 (Collette Blanco) Assessment and Plan Plan ASSESSMENT: - Acute hepatitis B. pos for Hep B Liver US 07-17-16 ---> Abnormal gallbladder appearanceAbdomen/Pelvis CT (07/16/16)----> 1. No dilatation of the biliary tree. 2. 1 cm fat containing structure associated with the duodenum near the ampulla. This could relate to ingested material such as a pill fragment or could relate to a lipoma of the ampulla. No obstruction of the biliary tree or bowel is seen. Liver US (07/17/16)----> Abnormal gallbladder appearance. Otherwise focally unremarkable. No hypotensive episodes. Hepatitis panel pending, CMV pending, AAYUSH pending. No new medications, no herbal supplements, no new tattoos, shellfish, new sexual partners. Is on a statin. Denies any flu-like symptoms, n/v, abdominal pain, diarrhea. Only symptoms is that he has been weak. AAYUSH neg. iron 138, TIBC 232, iron sat 59.4, ferritin 3086. CPK 7632. and await liver workup. T. Bili 7.8, AST 1152, ALT 942, Alk Phosph 183 - essentially unchanged. Statin on hold. PLAN: - SAURABH - Await rest of liver w/u - Monitor LFTs. - Avoid hepatotoxins. - Supportive care - Further recommendations to follow based on results of above - Pt seen and examined by Dr. Juan and myself and this note is written on his behalf (Bella,Collette S BLOW MOLD TECHNICIAN) Physician Comments Acute Hep B. LFTs improving slowly. Continue to monitor labs. Diet as tolerated. Supportive care. Denies any risk factors for Hep B. Report to [facility]. ( Dahlia Juan MD) Collette Blanco July 18, 2016 15:25 Dahlia Juan MD July 18, 2016 15:45
[2016-07-18 16:00] VITALS: BP 144/73; PULSE 53; RESP 20; TEMP 97.4; O2SAT 97
[2016-07-18 20:15] VITALS: BP 146/72; PULSE 51; RESP 16; TEMP 98.2; O2SAT 96
[2016-07-18 23:15] VITALS: BP 166/80; PULSE 46; RESP 16; TEMP 97.9; O2SAT 97
[2016-07-19 03:55] VITALS: BP 141/66; PULSE 44; RESP 16; TEMP 97.4; O2SAT 97
[2016-07-19] MEDS: LEVOTHYROXINE SODIUM 25 MCG TAB PO SCH (05:41)
[2016-07-19] MEDS: INSULIN ASPART SUPPLEMENTAL SCALE SQ SCH ×5 (05:42→20:19)
[2016-07-19 08:00] VITALS: BP 123/65; PULSE 47; RESP 20; TEMP 97.3; O2SAT 98
--- NOTE | 2016-07-19 08:02 | HHI.PR ---
Subjective Remarks resting comfortably with no distress. denies abdominal pain, nausea or vomiting. Objective Vitals Vital Signs Date Time Temp Pulse Resp B/P Pulse Ox O2 Delivery O2 Flow Rate FiO2 07/19/16 03:55 Room Air 07/19/16 03:55 97.4 44 16 141/66 97 07/18/16 23:15 Room Air 07/18/16 23:15 97.9 46 16 166/80 97 07/18/16 20:15 Room Air 07/18/16 20:15 98.2 51 16 146/72 96 07/18/16 16:00 97.4 53 20 144/73 97 07/18/16 12:51 97.6 56 18 158/58 97 I/O 07/18/16 07/18/16 07/18/16 07/19/16 07/19/16 07/19/16 07:00 15:00 23:00 07:00 15:00 23:00 Intake Total 240 ml 720 ml 480 ml 0 ml Output Total 550 ml 250 ml Balance -310 ml 470 ml 480 ml 0 ml Intake Oral 240 ml 720 ml 480 ml 0 ml Output Urine Total 550 ml 250 ml # Voids 5 5 # Bowel Movements 0 0 1 0 Result Diagram: 07/16/16 1405 07/18/16 0622 Imaging Last Impressions Liver Ultrasound 07/17/16 0000 Signed Impressions: Service Date/Time: Sunday, July 17, 2016 07:56 - CONCLUSION: Abnormal gallbladder appearance. Otherwise focally unremarkable Sinan Landrum MD Abdomen/Pelvis CT 07/16/16 0000 Signed Impressions: Service Date/Time: Saturday, July 16, 2016 14:29 - CONCLUSION: 1. No dilatation of the biliary tree. 2. 1 cm fat containing structure associated with the duodenum near the ampulla. This could relate to ingested material such as a pill fragment or could relate to a lipoma of the ampulla. No obstruction of the biliary tree or bowel is seen. Masoud José Jr., MD Objective Remarks GENERAL: This is a well-nourished, well-developed patient, in no apparent distress. CARDIOVASCULAR: Regular rate and regular rhythm without murmurs, gallops, or rubs. RESPIRATORY: Clear to auscultation. Breath sounds equal bilaterally. No wheezes , rales, or rhonchi. GASTROINTESTINAL: Abdomen soft, non-tender, nondistended. Normal, active bowel sounds MUSCULOSKELETAL: Extremities without clubbing, cyanosis, or edema. NEURO: Alert & Oriented x4 to person, place, time, situation. Moves all ext x4 Procedures none Medications and IVs Current Medications Lorazepam (Ativan Inj) 1 mg ONCE ONCE IV PUSH Last administered on 07/16/16 14 :42; Start 07/16/16 at 14:30; Stop 07/16/16 at 14:31; Status DC Ondansetron HCl 4 mg 4 mg Q8HR PRN IV PUSH NAUSEA; Start 07/16/16 at 15:45 Sodium Chloride (NS 1000 ml Inj) 1,000 ml @ 100 mls/hr Q10H IV Last administered on 07/18/16 08:24; Start 07/16/16 at 15:45; Stop 07/18/16 at 19:50; Status DC Dextrose (D50w (Vial) Inj) 25 ml UNSCH PRN IV PUSH HYPOGLYCEMIA-SEE COMMENTS; Start 07/16/16 at 15:45 Glucagon (Glucagon Inj) 1 mg UNSCH PRN OTHER HYPOGLYCEMIA-SEE COMMENTS; Start 07/16/16 at 15:45 Insulin Aspart (NovoLOG SUPPLEMENTAL SCALE) 1 ACHS SLIDING SCALE SQ Last administered on 07/19/16 05:42; Start 07/16/16 at 16:00 Enalapril Maleate (Vasotec) 10 mg BID PO Last administered on 07/18/16 22:25; Start 07/16/16 at 21:00 Levothyroxine Sodium (Synthroid) 25 mcg DAILY@06 PO Last administered on 05:41; Start 07/17/16 at 06:00 Metoprolol Tartrate (Lopressor) 50 mg BID PO Last administered on 07/18/16 22: 25; Start 07/16/16 at 21:00 Pantoprazole Sodium (Protonix) 40 mg DAILY PO Last administered on 07/18/16 08: 09; Start 07/17/16 at 09:00 A/P Assessment and Plan A/P - jaundice hepatitis panel suggestive of acute hepatitis B- will continue to monitor LFT's. GI following. -renal insufficiency with unknown duration; improved- continue to monitor the renal function. -hyperkalemia; resolved. -CAD/ hypertension ; resume home meds- however will decrease the dose of metoprolol due to bradycardia- continue to hold statin due to elevated LFT's -diabetes mellitus; hold metformin- accu-check with SSI -DVT prophylaxis with SCD's Kassandra García MD July 19, 2016 08:02
[2016-07-19] MEDS ORDERED: METO25TA3 PO (08:08)
[2016-07-19] MEDS: PANTOPRAZOLE SOD 40 MG DELAYED RELEASE TAB PO SCH (08:28)
[2016-07-19] MEDS: ENALAPRIL MALEATE 10 MG TAB PO SCH ×2 (08:28→20:19)
[2016-07-19] MEDS: METOPROLOL TARTRATE 25 MG TAB PO SCH ×2 (08:31→20:18)
[2016-07-19 10:20] LABS: ALKALINE PHOSPHATASE 184 U/L (45-117); ALT (GPT) 1092 U/L (12-78); ANION GAP 7 MEQ/L (5-15); AST (GOT) 1322 U/L (15-37); BICARBONATE 25.6 MEQ/L (21.0-32.0); BLOOD UREA NITROGEN 18 MG/DL (7-18); CHLORIDE 104 MEQ/L (98-107); CREATINE KINASE 7185 U/L (39-308); GLOMERULAR FILTRATION RATE 46 ML/MIN (>89); POTASSIUM 4.2 MEQ/L (3.5-5.1); SODIUM (NA) 137 MEQ/L (136-145); TOTAL BILIRUBIN ADULT 9.8 MG/DL (0.2-1.0)
[2016-07-19 10:51] LABS: CKMB 52.9 NG/ML (0.5-3.6)
--- NOTE | 2016-07-19 11:19 | HHI.GIFU ---
Subjective Remarks Resting in bed. No complaints. No n/v/d. No abdominal pain. (LakhaniAracelis Tarynchrist HEART) Objective Vitals I&O Vital Signs Date Time Temp Pulse Resp B/P Pulse Ox O2 Delivery O2 Flow Rate FiO2 07/19/16 09:33 Room Air 07/19/16 08:00 97.3 47 20 123/65 98 07/19/16 03:55 Room Air 07/19/16 03:55 97.4 44 16 141/66 97 07/18/16 23:15 Room Air 07/18/16 23:15 97.9 46 16 166/80 97 07/18/16 20:15 Room Air 07/18/16 20:15 98.2 51 16 146/72 96 07/18/16 16:00 97.4 53 20 144/73 97 07/18/16 12:51 97.6 56 18 158/58 97 I/O 07/18/16 07/18/16 07/18/16 07/19/16 07/19/16 07/19/16 07:00 15:00 23:00 07:00 15:00 23:00 Intake Total 240 ml 720 ml 480 ml 0 ml Output Total 550 ml 250 ml Balance -310 ml 470 ml 480 ml 0 ml Intake Oral 240 ml 720 ml 480 ml 0 ml Output Urine Total 550 ml 250 ml # Voids 5 5 # Bowel Movements 0 0 1 0 Laboratory Laboratory Tests Test 07/19/16 08:36 Sodium Level 137 Potassium Level 4.2 Chloride Level 104 Carbon Dioxide Level 25.6 Anion Gap 7 Blood Urea Nitrogen 18 Creatinine 1.50 Estimat Glomerular Filtration 46 Rate Random Glucose 160 Calcium Level 8.5 Total Bilirubin 9.8 Aspartate Amino Transf 1322 (AST/SGOT) Alanine Aminotransferase 1092 (ALT/SGPT) Alkaline Phosphatase 184 Total Creatine Kinase 7185 Creatine Kinase MB 52.9 Creatine Kinase MB % 0.7 Total Protein 7.6 Albumin 2.5 Imaging Last Impressions Liver Ultrasound 07/17/16 0000 Signed Impressions: Service Date/Time: Sunday, July 17, 2016 07:56 - CONCLUSION: Abnormal gallbladder appearance. Otherwise focally unremarkable Sinan Landrum MD Abdomen/Pelvis CT 07/16/16 0000 Signed Impressions: Service Date/Time: Saturday, July 16, 2016 14:29 - CONCLUSION: 1. No dilatation of the biliary tree. 2. 1 cm fat containing structure associated with the duodenum near the ampulla. This could relate to ingested material such as a pill fragment or could relate to a lipoma of the ampulla. No obstruction of the biliary tree or bowel is seen. Masoud José Jr., MD Physical Exam HEENT: Normocephalic; atraumatic; + icterus. CHEST: CTA CARDIAC: RRR ABDOMEN: Soft, nontender; no hepatosplenomegaly; bowel sounds are present in all four quadrants. EXTREMITIES: No clubbing, cyanosis, or edema. SKIN: Normal; no rash; +jaundice. 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 (Aracelis Lakhani) Assessment and Plan Plan ASSESSMENT: - Acute viral hepatitis B. Abdomen/Pelvis CT (07/16/16)----> 1. No dilatation of the biliary tree. 2. 1 cm fat containing structure associated with the duodenum near the ampulla. This could relate to ingested material such as a pill fragment or could relate to a lipoma of the ampulla. No obstruction of the biliary tree or bowel is seen. Liver US (07/17/16)----> Abnormal gallbladder appearance. Otherwise focally unremarkable. No hypotensive episodes. CMV undetected, Hepatitis Bs Ag (+) and Hep B Core IgM (+), AAYUSH negative, AMA pending, ASMA negative, AFP 13.9, Alpha 1 Antitrypsin 217, Ceruloplasmin pending, Ferritin 3006, Iron saturation 59.4. No new medications, no herbal supplements, no new tattoos, shellfish, new sexual partners. Asymptomatic, although LFTs slightly increased today- T. Bili 9.8, AST 1322, ALT 1092, Alk Phosph 184. Will get HBV viral load and Hep Be Ag and start Baraclude. PLAN: - SAURABH - Baraclude 0.5mg po daily - Hep B Viral load and Be Ag - Monitor LFTs. - Avoid hepatotoxins. - Once LFTs are trending down, then he can be discharged with outpatient followup. - Pt seen and examined by Dr. Juan and myself and this note is written on his behalf (Aracelis Lakhani) Physician Comments Seen and examined with UNA, doing better but lfts worsening. Initiate baraclude at 0.5mg daily. Monitor labs. (Dahlia Juan MD) Aracelis Lakhani July 19, 2016 11:19 Dahlia Juan MD July 19, 2016 15:19
[2016-07-19 12:00] VITALS: BP 149/77; PULSE 50; RESP 20; TEMP 98; O2SAT 96
[2016-07-19 16:00] VITALS: BP 133/76; PULSE 48; RESP 18; TEMP 98.1; O2SAT 98
[2016-07-19 20:00] VITALS: BP 127/64; PULSE 52; RESP 17; TEMP 98.6; O2SAT 98
[2016-07-20] VITALS: BP 151/72; PULSE 52; RESP 18; TEMP 97.8; O2SAT 100
[2016-07-20 04:00] VITALS: BP 125/60; PULSE 46; RESP 18; TEMP 97.9; O2SAT 97
[2016-07-20] MEDS: LEVOTHYROXINE SODIUM 25 MCG TAB PO SCH (06:00)
[2016-07-20] MEDS: INSULIN ASPART SUPPLEMENTAL SCALE SQ SCH ×4 (06:00→21:42)
[2016-07-20] MEDS: ENTECAVIR 0.5 MG TAB PO SCH (06:00)
[2016-07-20 07:39] LABS: INDIRECT BILIRUBIN 2.4 MG/DL (0.0-0.8); TOTAL BILIRUBIN ADULT 10.6 MG/DL (0.2-1.0)
[2016-07-20 08:03] VITALS: BP 159/70; PULSE 48; RESP 18; TEMP 97.7; O2SAT 96
[2016-07-20] MEDS: ENALAPRIL MALEATE 10 MG TAB PO SCH ×2 (09:35→21:42)
[2016-07-20] MEDS: METOPROLOL TARTRATE 25 MG TAB PO SCH (09:35)
[2016-07-20] MEDS: PANTOPRAZOLE SOD 40 MG DELAYED RELEASE TAB PO SCH (09:35)
[2016-07-20 12:03] VITALS: BP 154/98; PULSE 51; RESP 18; TEMP 97.7; O2SAT 98
--- NOTE | 2016-07-20 12:03 | HHI.PR ---
Subjective Remarks is comfortable with no pain. no nausea or vomiting. no new complaints. Objective Vitals Vital Signs Date Time Temp Pulse Resp B/P Pulse Ox O2 Delivery O2 Flow Rate FiO2 07/20/16 08:03 97.7 48 18 159/70 96 07/20/16 04:00 97.9 46 18 125/60 97 07/20/16 00:00 97.8 52 18 151/72 100 07/19/16 20:00 Room Air 07/19/16 20:00 98.6 52 17 127/64 98 07/19/16 16:00 98.1 48 18 133/76 98 I/O 07/19/16 07/19/16 07/19/16 07/20/16 07/20/16 07/20/16 07:00 15:00 23:00 07:00 15:00 23:00 Intake Total 0 ml 1100 ml 480 ml 1440 ml Balance 0 ml 1100 ml 480 ml 1440 ml Intake Oral 0 ml 1100 ml 480 ml 1440 ml # Voids 5 12 5 4 # Bowel Movements 0 1 1 Result Diagram: 07/16/16 1405 07/19/16 0836 Imaging Last Impressions Liver Ultrasound 07/17/16 0000 Signed Impressions: Service Date/Time: Sunday, July 17, 2016 07:56 - CONCLUSION: Abnormal gallbladder appearance. Otherwise focally unremarkable Sinan Landrum MD Abdomen/Pelvis CT 07/16/16 0000 Signed Impressions: Service Date/Time: Saturday, July 16, 2016 14:29 - CONCLUSION: 1. No dilatation of the biliary tree. 2. 1 cm fat containing structure associated with the duodenum near the ampulla. This could relate to ingested material such as a pill fragment or could relate to a lipoma of the ampulla. No obstruction of the biliary tree or bowel is seen. Masoud José Jr., MD Objective Remarks GENERAL: This is a well-nourished, well-developed patient, in no apparent distress. CARDIOVASCULAR: Regular rate and regular rhythm without murmurs, gallops, or rubs. RESPIRATORY: Clear to auscultation. Breath sounds equal bilaterally. No wheezes , rales, or rhonchi. GASTROINTESTINAL: Abdomen soft, non-tender, nondistended. Normal, active bowel sounds MUSCULOSKELETAL: Extremities without clubbing, cyanosis, or edema. NEURO: Alert & Oriented x4 to person, place, time, situation. Moves all ext x4 Procedures none Medications and IVs Current Medications Lorazepam (Ativan Inj) 1 mg ONCE ONCE IV PUSH Last administered on 07/16/16 14 :42; Start 07/16/16 at 14:30; Stop 07/16/16 at 14:31; Status DC Ondansetron HCl 4 mg 4 mg Q8HR PRN IV PUSH NAUSEA; Start 07/16/16 at 15:45 Sodium Chloride (NS 1000 ml Inj) 1,000 ml @ 100 mls/hr Q10H IV Last administered on 07/18/16 08:24; Start 07/16/16 at 15:45; Stop 07/18/16 at 19:50; Status DC Dextrose (D50w (Vial) Inj) 25 ml UNSCH PRN IV PUSH HYPOGLYCEMIA-SEE COMMENTS; Start 07/16/16 at 15:45 Glucagon (Glucagon Inj) 1 mg UNSCH PRN OTHER HYPOGLYCEMIA-SEE COMMENTS; Start 07/16/16 at 15:45 Insulin Aspart (NovoLOG SUPPLEMENTAL SCALE) 1 ACHS SLIDING SCALE SQ Last administered on 07/19/16 20:19; Start 07/16/16 at 16:00 Enalapril Maleate (Vasotec) 10 mg BID PO Last administered on 07/20/16 09:35; Start 07/16/16 at 21:00 Levothyroxine Sodium (Synthroid) 25 mcg DAILY@06 PO Last administered on 06:00; Start 07/17/16 at 06:00 Metoprolol Tartrate (Lopressor) 50 mg BID PO Last administered on 07/18/16 22: 25; Start 07/16/16 at 21:00; Stop 07/19/16 at 08:01; Status DC Pantoprazole Sodium (Protonix) 40 mg DAILY PO Last administered on 07/20/16 09: 35; Start 07/17/16 at 09:00 Metoprolol Tartrate (Lopressor) 25 mg BID PO Last administered on 07/20/16 09: 35; Start 07/19/16 at 09:00 Entecavir (Baraclude) 0.5 mg DAILY@06 PO Last administered on 07/20/16 06:00; Start 07/20/16 at 06:00 A/P Assessment and Plan A/P -acute hepatitis B started on Baraclude- will continue to monitor LFT's. GI following. -renal insufficiency with unknown duration; -likely chronic- improved- f/u as outpatient. -hyperkalemia; resolved. -CAD/ hypertension ; resume home meds- hold metoprolol today due to bradycardia - continue to hold statin due to elevated LFT's -diabetes mellitus; hold metformin- accu-check with SSI -DVT prophylaxis with SCD's Discharge Planning when cleared by GI. Kassandra García MD July 20, 2016 12:03
--- NOTE | 2016-07-20 12:04 | HHI.GIFU ---
Subjective Remarks Patient feels great, stating he doesn't feel any different today than he did 2 weeks ago. He is inquiring about going home, stating he will follow up on liver enzymes as an OP (Maureen Judge) Objective Vitals I&O Vital Signs Date Time Temp Pulse Resp B/P Pulse Ox O2 Delivery O2 Flow Rate FiO2 07/20/16 08:03 97.7 48 18 159/70 96 07/20/16 04:00 97.9 46 18 125/60 97 07/20/16 00:00 97.8 52 18 151/72 100 07/19/16 20:00 Room Air 07/19/16 20:00 98.6 52 17 127/64 98 07/19/16 16:00 98.1 48 18 133/76 98 07/19/16 12:00 98.0 50 20 149/77 96 I/O 07/19/16 07/19/16 07/19/16 07/20/16 07/20/16 07/20/16 07:00 15:00 23:00 07:00 15:00 23:00 Intake Total 0 ml 1100 ml 480 ml 1440 ml Balance 0 ml 1100 ml 480 ml 1440 ml Intake Oral 0 ml 1100 ml 480 ml 1440 ml # Voids 5 12 5 4 # Bowel Movements 0 1 1 Laboratory Laboratory Tests Test 07/20/16 06:20 Total Bilirubin 10.6 Direct Bilirubin 8.2 Indirect Bilirubin 2.4 Aspartate Amino Transf 1256 (AST/SGOT) Alanine Aminotransferase 1137 (ALT/SGPT) Alkaline Phosphatase 176 Total Protein 7.7 Albumin 2.5 Imaging Last Impressions Liver Ultrasound 07/17/16 0000 Signed Impressions: Service Date/Time: Sunday, July 17, 2016 07:56 - CONCLUSION: Abnormal gallbladder appearance. Otherwise focally unremarkable Sinan Landrum MD Abdomen/Pelvis CT 07/16/16 0000 Signed Impressions: Service Date/Time: Saturday, July 16, 2016 14:29 - CONCLUSION: 1. No dilatation of the biliary tree. 2. 1 cm fat containing structure associated with the duodenum near the ampulla. This could relate to ingested material such as a pill fragment or could relate to a lipoma of the ampulla. No obstruction of the biliary tree or bowel is seen. Masoud José Jr., MD Physical Exam HEENT: Normocephalic; atraumatic; + icterus. CHEST: CTA CARDIAC: RRR ABDOMEN: Soft, nontender; no hepatosplenomegaly; bowel sounds are present in all four quadrants. EXTREMITIES: No clubbing, cyanosis, or edema. SKIN: Normal; no rash; +jaundice. COMM[employer]CIAL [employer]: No focal deficits; alert and oriented times three. (Maureen Judge) Assessment and Plan Plan ASSESSMENT: - Acute viral hepatitis B. LFTs remain high with slight elevation in bili and ALT Abdomen/Pelvis CT (07/16/16)----> 1. No dilatation of the biliary tree. 2. 1 cm fat containing structure associated with the duodenum near the ampulla. This could relate to ingested material such as a pill fragment or could relate to a lipoma of the ampulla. No obstruction of the biliary tree or bowel is seen. Liver US (07/17/16)----> Abnormal gallbladder appearance. Otherwise focally unremarkable. No hypotensive episodes. CMV undetected, Hepatitis Bs Ag (+) and Hep B Core IgM (+), AAYUSH negative, AMA pending, ASMA negative, AFP 13.9, Alpha 1 Antitrypsin 217, Ceruloplasmin pending, Ferritin 3006, Iron saturation 59.4. HBV viral load and Hep Be Ag pending. Baraclude started. No new medications, no herbal supplements, no new tattoos, shellfish, new sexual partners. Asymptomatic, although PLAN: - SAURABH - Baraclude 0.5mg po daily - Await Hep B Viral load and Be Ag - Monitor LFTs. - Avoid hepatotoxins. - iron overload, will order Hfe - LFTs in am, - Possible dc in am and close LFTs monitoring - Pt seen and examined by Dr. Juan and myself and this note is written on his behalf (Maureen Judge) Physician Comments Seen and examined by [facility], sleeping at the time I saw him. Voicing no complaints. LFTS still markedly elevated. Started on baraclude yesterday. Can dc home once lfts start to improve. (Dahlia Juan MD) Maureen Judge July 20, 2016 12:04 Dahlia Juan MD July 20, 2016 14:24
[2016-07-20 16:03] VITALS: BP 139/69; PULSE 52; RESP 18; TEMP 98.1; O2SAT 100
[2016-07-20 20:00] VITALS: BP 152/84; PULSE 54; RESP 18; TEMP 98.6; O2SAT 98
[2016-07-21] VITALS: BP 141/64; PULSE 55; RESP 18; TEMP 98; O2SAT 96
[2016-07-21 04:00] VITALS: BP 161/70; PULSE 51; RESP 20; TEMP 97.9; O2SAT 95
[2016-07-21] MEDS: LEVOTHYROXINE SODIUM 25 MCG TAB PO SCH (06:27)
[2016-07-21] MEDS: ENTECAVIR 0.5 MG TAB PO SCH (06:27)
[2016-07-21] MEDS: INSULIN ASPART SUPPLEMENTAL SCALE SQ SCH ×4 (06:29→20:55)
[2016-07-21 08:00] VITALS: BP 156/76; PULSE 50; RESP 12; TEMP 97.9; O2SAT 97
[2016-07-21 08:07] LABS: INDIRECT BILIRUBIN 2.1 MG/DL (0.0-0.8); TOTAL BILIRUBIN ADULT 10.1 MG/DL (0.2-1.0)
[2016-07-21] MEDS: PANTOPRAZOLE SOD 40 MG DELAYED RELEASE TAB PO SCH (09:22)
[2016-07-21] MEDS: ENALAPRIL MALEATE 10 MG TAB PO SCH ×2 (09:22→20:41)
--- NOTE | 2016-07-21 09:25 | HHI.PR ---
Subjective Remarks resting comfortably with no distress. no pain, nausea/ vomiting. no new complaints. d/w the RN. Objective Vitals Vital Signs Date Time Temp Pulse Resp B/P Pulse Ox O2 Delivery O2 Flow Rate FiO2 07/21/16 08:00 97.9 50 12 156/76 97 07/21/16 04:00 97.9 51 20 161/70 95 07/21/16 00:00 98.0 55 18 141/64 96 07/20/16 20:00 98.6 54 18 152/84 98 07/20/16 20:00 98 Room Air 07/20/16 16:03 98.1 52 18 139/69 100 07/20/16 12:03 97.7 51 18 154/98 98 I/O 07/20/16 07/20/16 07/20/16 07/21/16 07/21/16 07/21/16 07:00 15:00 23:00 07:00 15:00 23:00 Intake Total 1440 ml 360 ml 360 ml 0 ml Balance 1440 ml 360 ml 360 ml 0 ml Intake Oral 1440 ml 360 ml 360 ml 0 ml # Voids 4 7 1 1 # Bowel Movements 1 1 1 1 Result Diagram: 07/19/16 0836 Imaging Last Impressions Liver Ultrasound 07/17/16 0000 Signed Impressions: Service Date/Time: Sunday, July 17, 2016 07:56 - CONCLUSION: Abnormal gallbladder appearance. Otherwise focally unremarkable Sinan Landrum MD Abdomen/Pelvis CT 07/16/16 0000 Signed Impressions: Service Date/Time: Saturday, July 16, 2016 14:29 - CONCLUSION: 1. No dilatation of the biliary tree. 2. 1 cm fat containing structure associated with the duodenum near the ampulla. This could relate to ingested material such as a pill fragment or could relate to a lipoma of the ampulla. No obstruction of the biliary tree or bowel is seen. Masoud José Jr., MD Objective Remarks GENERAL: This is a well-nourished, well-developed patient, in no apparent distress. CARDIOVASCULAR: Regular rate and regular rhythm without murmurs, gallops, or rubs. RESPIRATORY: Clear to auscultation. Breath sounds equal bilaterally. No wheezes , rales, or rhonchi. GASTROINTESTINAL: Abdomen soft, non-tender, nondistended. Normal, active bowel sounds MUSCULOSKELETAL: Extremities without clubbing, cyanosis, or edema. NEURO: Alert & Oriented x4 to person, place, time, situation. Moves all ext x4 Procedures none Medications and IVs Current Medications Lorazepam (Ativan Inj) 1 mg ONCE ONCE IV PUSH Last administered on 07/16/16 14 :42; Start 07/16/16 at 14:30; Stop 07/16/16 at 14:31; Status DC Ondansetron HCl 4 mg 4 mg Q8HR PRN IV PUSH NAUSEA; Start 07/16/16 at 15:45 Sodium Chloride (NS 1000 ml Inj) 1,000 ml @ 100 mls/hr Q10H IV Last administered on 07/18/16 08:24; Start 07/16/16 at 15:45; Stop 07/18/16 at 19:50; Status DC Dextrose (D50w (Vial) Inj) 25 ml UNSCH PRN IV PUSH HYPOGLYCEMIA-SEE COMMENTS; Start 07/16/16 at 15:45 Glucagon (Glucagon Inj) 1 mg UNSCH PRN OTHER HYPOGLYCEMIA-SEE COMMENTS; Start 07/16/16 at 15:45 Insulin Aspart (NovoLOG SUPPLEMENTAL SCALE) 1 ACHS SLIDING SCALE SQ Last administered on 07/20/16 21:42; Start 07/16/16 at 16:00 Enalapril Maleate (Vasotec) 10 mg BID PO Last administered on 07/20/16 21:42; Start 07/16/16 at 21:00 Levothyroxine Sodium (Synthroid) 25 mcg DAILY@06 PO Last administered on 06:27; Start 07/17/16 at 06:00 Metoprolol Tartrate (Lopressor) 50 mg BID PO Last administered on 07/18/16 22: 25; Start 07/16/16 at 21:00; Stop 07/19/16 at 08:01; Status DC Pantoprazole Sodium (Protonix) 40 mg DAILY PO Last administered on 07/20/16 09: 35; Start 07/17/16 at 09:00 Metoprolol Tartrate (Lopressor) 25 mg BID PO Last administered on 07/20/16 09: 35; Start 07/19/16 at 09:00; Status Hold Entecavir (Baraclude) 0.5 mg DAILY@06 PO Last administered on 5/7/17at 06:27; Start 07/20/16 at 06:00 A/P Assessment and Plan A/P -acute hepatitis B started on Baraclude- will continue to monitor LFT's. GI following. -renal insufficiency with unknown duration; -likely chronic- improved- f/u as outpatient. -hyperkalemia; resolved. -CAD/ hypertension ; resume home meds- continue to hold metoprolol today due to bradycardia- continue to hold statin due to elevated LFT's -diabetes mellitus; hold metformin- accu-check with SSI -DVT prophylaxis with SCD's Discharge Planning possibly within the next 24- hrs if LFT's continue to improve. Kassandra García MD July 21, 2016 09:25
[2016-07-21 10:58] LABS: CKMB 12.5 NG/ML (0.5-3.6)
[2016-07-21 12:00] VITALS: BP 159/77; PULSE 67; RESP 12; TEMP 97.9; O2SAT 98
--- NOTE | 2016-07-21 15:39 | HHI.GIFU ---
Subjective Remarks Pt resting comfortably in bed, asking to go home. Denies n/v, pain. (Collette Blanco) Objective Vitals I&O Vital Signs Date Time Temp Pulse Resp B/P Pulse Ox O2 Delivery O2 Flow Rate FiO2 07/21/16 12:00 97.9 67 12 159/77 98 07/21/16 08:00 Room Air 07/21/16 08:00 97.9 50 12 156/76 97 07/21/16 04:00 97.9 51 20 161/70 95 07/21/16 00:00 98.0 55 18 141/64 96 07/20/16 20:00 98.6 54 18 152/84 98 07/20/16 20:00 98 Room Air 07/20/16 16:03 98.1 52 18 139/69 100 I/O 07/20/16 07/20/16 07/20/16 07/21/16 07/21/16 07/21/16 07:00 15:00 23:00 07:00 15:00 23:00 Intake Total 1440 ml 360 ml 360 ml 0 ml Balance 1440 ml 360 ml 360 ml 0 ml Intake Oral 1440 ml 360 ml 360 ml 0 ml # Voids 4 7 1 1 # Bowel Movements 1 1 1 1 Laboratory Laboratory Tests Test 07/21/16 06:45 Total Bilirubin 10.1 Direct Bilirubin 8.0 Indirect Bilirubin 2.1 Aspartate Amino Transf 1022 (AST/SGOT) Alanine Aminotransferase 1031 (ALT/SGPT) Alkaline Phosphatase 155 Total Creatine Kinase 1948 Creatine Kinase MB 12.5 Creatine Kinase MB % 0.6 Total Protein 7.2 Albumin 2.3 Imaging Last Impressions Liver Ultrasound 07/17/16 0000 Signed Impressions: Service Date/Time: Sunday, July 17, 2016 07:56 - CONCLUSION: Abnormal gallbladder appearance. Otherwise focally unremarkable Sinan Landrum MD Abdomen/Pelvis CT 07/16/16 0000 Signed Impressions: Service Date/Time: Saturday, July 16, 2016 14:29 - CONCLUSION: 1. No dilatation of the biliary tree. 2. 1 cm fat containing structure associated with the duodenum near the ampulla. This could relate to ingested material such as a pill fragment or could relate to a lipoma of the ampulla. No obstruction of the biliary tree or bowel is seen. Masoud José Jr., MD Physical Exam HEENT: Normocephalic; atraumatic; + icterus. CHEST: CTA CARDIAC: RRR ABDOMEN: Soft, nontender; no hepatosplenomegaly; bowel sounds are present in all four quadrants. EXTREMITIES: No clubbing, cyanosis, or edema. SKIN: Normal; no rash; +jaundice. MARKETING LEAD: No focal deficits; alert and oriented times three. (Collette Blanco) Assessment and Plan Plan ASSESSMENT: - Acute viral hepatitis B. LFTs remain high with slight elevation in bili and ALT Abdomen/Pelvis CT (07/16/16)----> 1. No dilatation of the biliary tree. 2. 1 cm fat containing structure associated with the duodenum near the ampulla. This could relate to ingested material such as a pill fragment or could relate to a lipoma of the ampulla. No obstruction of the biliary tree or bowel is seen. Liver US (07/17/16)----> Abnormal gallbladder appearance. Otherwise focally unremarkable. No hypotensive episodes. CMV undetected, Hepatitis Bs Ag (+) and Hep B Core IgM (+), AAYUSH negative, AMA pending, ASMA negative, AFP 13.9, Alpha 1 Antitrypsin 217, Ceruloplasmin 34, Ferritin 3006, Iron saturation 59.4. HBV viral load and Hep Be Ag pending. Baraclude started. No new medications, no herbal supplements, no new tattoos, shellfish, new sexual partners. Asymptomatic, although PLAN: - SAURABH - Baraclude 0.5mg po daily - Await Hep B Viral load and Be Ag - Monitor LFTs. - Avoid hepatotoxins. - okay to d/c from GI standpoint - f/u with GI as outpatient in 1 week - Pt seen and examined by Dr. Juan and myself and this note is written on his behalf (Collette Blanco) Physician Comments Seen and examined, acute HEP B. LFTs improving slowly. Can dc home on Baraclude ).5mg daily. Gi fu next week with repeat LFTs. Thank you (Dahlia Juan MD) Collette Blanco July 21, 2016 15:39 Dahlia Juan MD July 21, 2016 16:44
[2016-07-21 16:00] VITALS: BP 133/74; PULSE 65; RESP 16; TEMP 98.3; O2SAT 99
[2016-07-21] MEDS ORDERED: [UNRECOGNIZED DRUG - CODE] PO (17:22)
--- NOTE | 2016-07-21 17:23 | HHI.DCPOC ---
Discharge Care Plan Diagnosis: (1) Jaundice Additional Problems jaundice. Goals to Promote Your Health * To prevent worsening of your condition and complications * To maintain your health at the optimal level Directions to Meet Your Goals Take your medications as prescribed Follow your dietary instruction Follow activity as directed Keep your appointments as scheduled Take your immunizations and boosters as scheduled If your symptoms worsen call your PCP, if no PCP go to Urgent Care Center or Emergency Room Smoking is Dangerous to Your Health. Avoid second hand smoke Call the 24-hour hour crisis hotline for domestic abuse at Kassandra García MD July 21, 2016 17:22
[2016-07-21 20:00] VITALS: BP 151/74; PULSE 53; RESP 18; TEMP 98.1; O2SAT 95
[2016-07-21 23:51] LABS: MITOCHONDRIAL ABS LESS THAN 20.0 U (())
[2016-07-22] VITALS: BP 160/77; PULSE 44; RESP 18; TEMP 98.4; O2SAT 96
[2016-07-22 04:00] VITALS: BP 182/84; PULSE 45; RESP 18; TEMP 98.3; O2SAT 98
[2016-07-22] MEDS ORDERED: hydrALAZINE HCL 20 MG/ML VIAL IV PUSH PRN (04:00)
[2016-07-22] MEDS: LEVOTHYROXINE SODIUM 25 MCG TAB PO SCH (04:29)
[2016-07-22] MEDS: ENTECAVIR 0.5 MG TAB PO SCH (04:29)
[2016-07-22] MEDS ORDERED: hydrALAZINE HCL 50 MG TAB PO ONE (04:30)
[2016-07-22] MEDS ORDERED: TAMS0.4C4 PO (04:38)
[2016-07-22] MEDS: INSULIN ASPART SUPPLEMENTAL SCALE SQ SCH ×2 (06:48→11:00)
[2016-07-22 07:40] LABS: INDIRECT BILIRUBIN 2.8 MG/DL (0.0-0.8)
[2016-07-22 07:43] VITALS: PULSE 71
[2016-07-22 08:00] VITALS: BP 131/74; PULSE 69; RESP 18; TEMP 97.5; O2SAT 97
[2016-07-22] MEDS: PANTOPRAZOLE SOD 40 MG DELAYED RELEASE TAB PO SCH (08:21)
[2016-07-22] MEDS: ENALAPRIL MALEATE 10 MG TAB PO SCH (08:22)
[2016-07-22 12:00] VITALS: BP 139/77; PULSE 93; RESP 20; TEMP 97.4; O2SAT 99
--- NOTE | 2016-07-22 12:47 | HHI.PR ---
Subjective Remarks resting comfortably with no distress. no abdominal pain, nausea or vomiting. wants to go home today. Objective Vitals Vital Signs Date Time Temp Pulse Resp B/P Pulse Ox O2 Delivery O2 Flow Rate FiO2 07/22/16 12:00 97.4 93 20 139/77 99 07/22/16 09:23 Room Air 07/22/16 08:00 97.5 69 18 131/74 97 07/22/16 07:43 71 07/22/16 04:00 98.3 45 18 182/84 98 07/22/16 00:00 98.4 44 18 160/77 96 07/21/16 20:00 98.1 53 18 151/74 95 07/21/16 19:34 Room Air 07/21/16 16:00 98.3 65 16 133/74 99 I/O 07/21/16 07/21/16 07/21/16 07/22/16 07/22/16 07/22/16 06:59 14:59 22:59 06:59 14:59 22:59 Intake Total 0 ml 240 ml Balance 0 ml 240 ml Intake Oral 0 ml 240 ml # Voids 1 2 # Bowel Movements 1 1 Result Diagram: 07/19/16 0836 Imaging Last Impressions Liver Ultrasound 07/17/16 0000 Signed Impressions: Service Date/Time: Sunday, July 17, 2016 07:56 - CONCLUSION: Abnormal gallbladder appearance. Otherwise focally unremarkable Sinan Landrum MD Abdomen/Pelvis CT 07/16/16 0000 Signed Impressions: Service Date/Time: Saturday, July 16, 2016 14:29 - CONCLUSION: 1. No dilatation of the biliary tree. 2. 1 cm fat containing structure associated with the duodenum near the ampulla. This could relate to ingested material such as a pill fragment or could relate to a lipoma of the ampulla. No obstruction of the biliary tree or bowel is seen. Masoud José Jr., MD Objective Remarks GENERAL: This is a well-nourished, well-developed patient, in no apparent distress. CARDIOVASCULAR: Regular rate and regular rhythm without murmurs, gallops, or rubs. RESPIRATORY: Clear to auscultation. Breath sounds equal bilaterally. No wheezes , rales, or rhonchi. GASTROINTESTINAL: Abdomen soft, non-tender, nondistended. Normal, active bowel sounds MUSCULOSKELETAL: Extremities without clubbing, cyanosis, or edema. NEURO: Alert & Oriented x4 to person, place, time, situation. Moves all ext x4 Procedures none Medications and IVs Current Medications Lorazepam (Ativan Inj) 1 mg ONCE ONCE IV PUSH Last administered on 07/16/16 14 :42; Start 07/16/16 at 14:30; Stop 07/16/16 at 14:31; Status DC Ondansetron HCl 4 mg 4 mg Q8HR PRN IV PUSH NAUSEA; Start 07/16/16 at 15:45 Sodium Chloride (NS 1000 ml Inj) 1,000 ml @ 100 mls/hr Q10H IV Last administered on 07/18/16 08:24; Start 07/16/16 at 15:45; Stop 07/18/16 at 19:50; Status DC Dextrose (D50w (Vial) Inj) 25 ml UNSCH PRN IV PUSH HYPOGLYCEMIA-SEE COMMENTS; Start 07/16/16 at 15:45 Glucagon (Glucagon Inj) 1 mg UNSCH PRN OTHER HYPOGLYCEMIA-SEE COMMENTS; Start 07/16/16 at 15:45 Insulin Aspart (NovoLOG SUPPLEMENTAL SCALE) 1 ACHS SLIDING SCALE SQ Last administered on 07/21/16 20:55; Start 07/16/16 at 16:00 Enalapril Maleate (Vasotec) 10 mg BID PO Last administered on 07/22/16 08:22; Start 07/16/16 at 21:00 Levothyroxine Sodium (Synthroid) 25 mcg DAILY@06 PO Last administered on 04:29; Start 07/17/16 at 06:00 Metoprolol Tartrate (Lopressor) 50 mg BID PO Last administered on 07/18/16 22: 25; Start 07/16/16 at 21:00; Stop 07/19/16 at 08:01; Status DC Pantoprazole Sodium (Protonix) 40 mg DAILY PO Last administered on 07/22/16 08: 21; Start 07/17/16 at 09:00 Metoprolol Tartrate (Lopressor) 25 mg BID PO Last administered on 07/20/16 09: 35; Start 07/19/16 at 09:00; Status Hold Entecavir (Baraclude) 0.5 mg DAILY@06 PO Last administered on 07/22/16 04:29; Start 07/20/16 at 06:00 Hydralazine HCl (Apresoline Inj) 10 mg Q4H PRN IV PUSH BP >160/90; Start at 04:00 Hydralazine HCl (Apresoline) 50 mg ONCE ONCE PO Last administered on 07/22/16 04:29; Start 07/22/16 at 04:30; Stop 07/22/16 at 04:31; Status DC A/P Assessment and Plan A/P -acute hepatitis B started on Baraclude- GI follow-up appreciated and cleared for discharge. -renal insufficiency with unknown duration; -likely chronic- improved- f/u as outpatient. -hyperkalemia; resolved. -CAD/ hypertension ; resume home meds- resume metoprolol at a lower dose- continue to hold statin due to elevated LFT's -diabetes mellitus; hold metformin- accu-check with SSI -DVT prophylaxis with SCD's Discharge Planning dc home with f/u by pcp and GI. see med list. d/w the patient. Kassandra García MD July 22, 2016 12:47
--- NOTE | 2016-07-22 12:48 | HHI.DS ---
Discharge Summary Admission Date July 16, 2016 at 15:35 Discharge Date: July 22, 2016 Admitting Diagnosis liver failure (1) Jaundice ICD Code: R17 Diagnosis: Principal Procedures none Brief History - From Admission patient is a 71 y/o male with history of CAD, hypertension and diabetes mellitus who presented to ER with jaundice. he says that he noticed that ' his color was yellowish' a few days ago. he was seen by his PCP and had some blood work done. he was called and advised to come to ER by his PCP after he was found to have elevated LFT's. he says that he's had on and off abdominal pain for the past ten days. pain is periumbilical and with no radiation. pain is associated with occasional nausea and emesis. he denies any fever, chills. no recent trips. CBC/BMP: 07/19/16 0836 Significant Findings Laboratory Tests Test 07/20/16 07/21/16 07/22/16 06:20 06:45 05:20 Total Bilirubin 10.6 MG/DL 10.1 MG/DL 11.0 MG/DL (0.2-1.0) (0.2-1.0) (0.2-1.0) Direct Bilirubin 8.2 MG/DL 8.0 MG/DL 8.2 MG/DL (0.0-0.2) (0.0-0.2) (0.0-0.2) Indirect Bilirubin 2.4 MG/DL 2.1 MG/DL 2.8 MG/DL (0.0-0.8) (0.0-0.8) (0.0-0.8) Aspartate Amino Transf 1256 U/L 1022 U/L 1076 U/L (AST/SGOT) (15-37) (15-37) (15-37) Alanine Aminotransferase 1137 U/L 1031 U/L 1088 U/L (ALT/SGPT) (-) (-78) (12-) Alkaline Phosphatase 176 U/L 155 U/L 154 U/L (45-117) (45-117) (45-117) Albumin 2.5 GM/DL 2.3 GM/DL 2.4 GM/DL (3.4-5.0) (3.4-5.0) (3.4-5.0) Total Creatine Kinase 1948 U/L 1081 U/L (39-308) (39-308) Creatine Kinase MB 12.5 NG/ML 8.0 NG/ML (0.5-3.6) (0.5-3.6) Imaging Last Impressions Liver Ultrasound 07/17/16 0000 Signed Impressions: Service Date/Time: Sunday, July 17, 2016 07:56 - CONCLUSION: Abnormal gallbladder appearance. Otherwise focally unremarkable Sinan Landrum MD Abdomen/Pelvis CT 07/16/16 0000 Signed Impressions: Service Date/Time: Saturday, July 16, 2016 14:29 - CONCLUSION: 1. No dilatation of the biliary tree. 2. 1 cm fat containing structure associated with the duodenum near the ampulla. This could relate to ingested material such as a pill fragment or could relate to a lipoma of the ampulla. No obstruction of the biliary tree or bowel is seen. Masoud José Jr., MD PE at Discharge GENERAL: This is a well-nourished, well-developed patient, in no apparent distress. CARDIOVASCULAR: Regular rate and regular rhythm without murmurs, gallops, or rubs. RESPIRATORY: Clear to auscultation. Breath sounds equal bilaterally. No wheezes , rales, or rhonchi. GASTROINTESTINAL: Abdomen soft, non-tender, nondistended. Normal, active bowel sounds MUSCULOSKELETAL: Extremities without clubbing, cyanosis, or edema. NEURO: Alert & Oriented x4 to person, place, time, situation. Moves all ext x4 Hospital Course -acute hepatitis B started on Baraclude- GI follow-up appreciated and cleared for discharge. -renal insufficiency with unknown duration; -likely chronic- improved- f/u as outpatient. -hyperkalemia; resolved. -CAD/ hypertension ; resume home meds- resume metoprolol at a lower dose- continue to hold statin due to elevated LFT's -diabetes mellitus; hold metformin- accu-check with SSI -DVT prophylaxis with SCD's Pt Condition on Discharge: Good Discharge Disposition: Discharge Home Discharge Time: <= 30 minutes Discharge Instructions DIET: Follow Instructions for: Heart Healthy Diet, Diabetic Diet Activities you can perform: Regular-No Restrictions Follow up Referrals: Gastroenterology PCP Follow-up New Medications: Baraclude0.5 Mg (Baraclude) 0.5 Mg Tab 0.5 MG PO DAILY@06 hepatitis Days 14 Ref 0 TAB Metoprolol Tartrate (Metoprolol Tartrate) 25 Mg Tab 25 MG PO BID hypertension Days 30 Ref 0 TAB Continued Medications: Enalapril (Enalapril) 10 Mg Tab 10 MG PO BID #60 Ref 0 TAB Glimepiride (Glimepiride) 2 Mg Tab 2 MG PO DAILY Take with breakfast or first main meal Blood Sugar Management #30 Ref 0 TAB Levothyroxine (Levothyroxine) 25 Mcg Tab 25 MCG PO DAILY Thyroid #30 Ref 0 TAB Mirtazapine (Mirtazapine) 30 Mg Tab 30 MG PO HS SLEEP #30 Ref 0 TAB Pantoprazole (Pantoprazole) 40 Mg Tab 40 MG PO DAILY Reflux #30 Ref 0 TAB Discontinued Medications: Aspirin (Aspirin) 81 Mg Chew 81 MG CHEW HS Ref 0 TAB Atorvastatin (Atorvastatin) 40 Mg Tab 40 MG PO HS Cholesterol Management #30 Ref 0 TAB Metformin (Metformin) 500 Mg Tab 500 MG PO BIDPC With meals Blood Sugar Management #60 Ref 0 TAB Metoprolol Tartrate (Metoprolol Tartrate) 50 Mg Tab 50 MG PO BID #60 Ref 0 TAB Kassandra García MD July 22, 2016 12:48
[2016-07-24 11:50] LABS: HEP B DNA R1 2500000 IU/mL (())
[2016-07-30 16:49] LABS: HEREDITARY HEMOCHROM SPECIMEN WB Whole Blood (())
== END 2016-07-22 13:40 | disposition home or self-care (01) | DRG 443 ==
LOC: NEPC 12:32 → NEDA 15:35 → N04B 18:07
PROVIDERS: ADMIT Internal Medicine; ATTEND Internal Medicine
DX: B16.9 Acute hepatitis B without delta-agent and without hepatic coma (principal); E87.5 Hyperkalemia; I10 Essential (primary) hypertension; I25.10 Atherosclerotic heart disease of native coronary artery without angina pectoris; E11.9 Type 2 diabetes mellitus without complications; E78.00 Pure hypercholesterolemia, unspecified; N28.9 Disorder of kidney and ureter, unspecified; Z95.1 Presence of aortocoronary bypass graft
CPT/HCPCS: 74176; 76705; 80053; 80074; 80076; 80307; 81256; 82103; 82105; 82248; 82390; 82550; 82552; 82728; 82948; 83520; 83540; 83550; 83690; 84132; 85025; 85610; 85730; 86038; 86256; 87350; 87497; 87517; 96374; J1815; J2060; J7030

== ENCOUNTER 2017-01-24 15:07 | Emergency (ER) | payer OTHER ==
[~2017-01-24] VITALS: Ht 172.7 cm; Wt 100.0 kg
[~2017-01-24 15:07] MED LIST: ENAL10TA PO; GLIM2TAB PO; LEVO25TA4 PO; METO25TA3 PO; MIRT30TA PO; PANT40TA3 PO; TAMS0.4C4 PO; [UNRECOGNIZED DRUG - CODE] PO
[2017-01-24 15:08] VITALS: BP 132/73; PULSE 92; RESP 13; TEMP 97.7; O2SAT 96
[2017-01-24] MEDS ORDERED: [UNRECOGNIZED DRUG - OTHER] (15:28)
[2017-01-24 15:29] VITALS: BP 122/75; PULSE 100; PULSE 96; RESP 15; RESP 16; O2SAT 97
[2017-01-24] MEDS ORDERED: SODIUM CHLOR 0.9% 1000 ML INJ 1,000 ML IV ONE ×2 (15:30→18:00)
--- NOTE | 2017-01-24 15:38 | PD ---
HPI Chief Complaint: GI Complaint Time Seen by Provider: 15:34 Travel History International Travel<30 days: No Contact w/Intl Traveler<30days: No Traveled to known affect area: No History of Present Illness HPI 71-year-old male that presents to the ED for evaluation of diarrhea, left flank pain and inability to urinate for the past 4 days. Per patient's symptoms started on Friday. Per patient on Friday he developed severe pain in his flank. He was not able to ambulate will he was able to stay in bed and was able to tolerate until he was able to get up. As the days progressed the pain came and went but did not improve. He got concerned because he also started having diarrhea as well as inability to urinate for the past 4 days. Patient tells me that the first time his been out urine was just today and he shows me a urine cup which shows very small amount of urine. States that the pain is mainly to the left flank. He has a history of CABG and takes no blood thinners. History of diabetes and have her pressure as well as high cholesterol. He was recently admitted to the hospital this year for jaundice which was found to be related to hepatitis. He states that his been compliant with his medications and follow with his primary care doctor. He denies any chest pain or shortness of breath. No headache or blurry vision. Per patient the pain is 7 out of 10. Nothing really makes it better or worse. He has no allergies to medication. PFSH Past Medical History Arthritis: Yes (hands) Cancer: No Cardiovascular Problems: Yes Diabetes: Yes Endocrine: Yes Genitourinary: Yes (frequency) Hypertension: Yes Immune Disorder: No Musculoskeletal: Yes Neurologic: No Psychiatric: No Reproductive: No Respiratory: No Thyroid Disease: Yes Past Surgical History Abdominal Surgery: No AICD: No Cardiac Surgery: Yes (Triple Bypass 2005) Coronary Artery Bypass Graft: Yes (TRIPLE BYPASS) Ear Surgery: No Endocrine Surgery: No Eye Surgery: Yes (Cataract left) Genitourinary Surgery: No Oral Surgery: No Pacemaker: No Thoracic Surgery: No Social History Alcohol Use: Yes (OCCAS) Tobacco Use: No Substance Use: No Allergies-Medications (Allergen,Severity, Reaction): Coded Allergies: No Known Allergies (Unverified Adverse Reaction, Unknown, 01/24/17) Reported Meds & Prescriptions Reported Meds & Active Scripts Active Flagyl (Metronidazole) 500 Mg Tab 500 Mg PO BID 10 Days Hydrocodone-Acetaminophen 5-325 mg Tab 1 Tab PO Q6H PRN Metoprolol Tartrate 25 Mg Tab 25 Mg PO BID 30 Days Reported [insuling inj] Tamsulosin (Tamsulosin HCl) 0.4 Mg Cap 0.4 Mg PO HS Pantoprazole (Pantoprazole Sodium) 40 Mg Tab 40 Mg PO DAILY Enalapril (Enalapril Maleate) 10 Mg Tab 10 Mg PO BID Mirtazapine 30 Mg Tab 30 Mg PO HS Glimepiride 2 Mg Tab 2 Mg PO DAILY Take with breakfast or first main meal Levothyroxine (Levothyroxine Sodium) 25 Mcg Tab 25 Mcg PO DAILY Review of Systems Except as stated in HPI: all other systems reviewed are Neg Physical Exam Narrative GENERAL: SKIN: Warm and dry. HEAD: Atraumatic. Normocephalic. EYES: Pupils equal and round. No scleral icterus. No injection or drainage. ENT: No nasal bleeding or discharge. Mucous membranes pink and moist. Tongue is midline. No uvula deviation. NECK: Trachea midline. No JVD. CARDIOVASCULAR: Regular rate and rhythm. No murmurs, S3, S4. RESPIRATORY: No accessory muscle use. Clear to auscultation. Breath sounds equal bilaterally. GASTROINTESTINAL: Abdomen soft, non-tender, nondistended. Hepatic and splenic margins not palpable. MUSCULOSKELETAL: Extremities without clubbing, cyanosis, or edema. No obvious deformities. Full range of motion of the upper and lower extremities bilaterally. 2+ pulses bilaterally. Reproducible tenderness to palpation on the left flank around the CVA area. NEUROLOGICAL: Awake and alert. No obvious cranial nerve deficits. Motor grossly within normal limits. Five out of 5 muscle strength in the arms and legs. Normal speech. PSYCHIATRIC: Appropriate mood and affect; insight and judgment normal. Data Data Last Documented VS Vital Signs Date Time Temp Pulse Resp B/P (MAP) Pulse Ox O2 Delivery O2 Flow Rate FiO2 01/24/17 18:04 90 16 138/85 (102) 95 Room Air 01/24/17 15:08 97.7 Orders Orders Complete Blood Count With Diff (01/24/17 15:25) Comprehensive Metabolic Panel (01/24/17 15:25) Prothrombin Time / Inr (Pt) (01/24/17 15:25) Act Partial Throm Time (Ptt) (01/24/17 15:25) Blood Culture (01/24/17 15:25) Lipase (01/24/17 15:25) Urinalysis - C+S If Indicated (01/24/17 15:25) Magnesium (Mg) (01/24/17 15:25) Thyroid Stimulating Hormone (01/24/17 15:25) Chest, Single Ap (01/24/17 15:25) Ct Abd/Pel W Iv Contrast(Rout) (01/24/17 15:25) Iv Access Insert/Monitor (01/24/17 15:25) Ecg Monitoring (01/24/17 15:25) Oximetry (01/24/17 15:25) Lactic Acid Sepsis Protocol (01/24/17 15:29) Sodium Chlor 0.9% 1000 Ml Inj (Ns 1000 M (01/24/17 15:30) Morphine Inj (Morphine Inj) (01/24/17 15:45) Ondansetron Inj (Zofran Inj) (01/24/17 15:45) Iohexol 350 Inj (Omnipaque 350 Inj) (01/24/17 17:44) Sodium Chlor 0.9% 1000 Ml Inj (Ns 1000 M (01/24/17 18:00) Metronidazole 500 Mg Inj (Flagyl 500 Mg (01/24/17 18:15) Labs Laboratory Tests Test 01/24/17 15:30 01/24/17 15:35 Urine Color YELLOW Urine Turbidity HAZY Urine pH 5.5 Urine Specific [place] 1.023 Urine Protein 30 mg/dL Urine Glucose (UA) NEG mg/dL Urine Ketones NEG mg/dL Urine Occult Blood MOD Urine Nitrite NEG Urine Bilirubin NEG Urine Urobilinogen LESS THAN 2.0 MG/DL Urine Leukocyte Esterase NEG Urine RBC 1 /hpf Urine WBC 1 /hpf Urine Hyaline Casts 10 /lpf Urine Granular Casts 7 /lpf Urine Mucus MOD /lpf Microscopic Urinalysis Comment CULT NOT INDICATED White Blood Count 8.6 TH/MM3 Red Blood Count 5.27 MIL/MM3 Hemoglobin 15.5 GM/DL Hematocrit 44.8 % Mean Corpuscular Volume 85.0 FL Mean Corpuscular Hemoglobin 29.5 PG Mean Corpuscular Hemoglobin Concent 34.7 % Red Cell Distribution Width 13.6 % Platelet Count 149 TH/MM3 Mean Platelet Volume 10.0 FL Neutrophils (%) (Auto) 70.0 % Lymphocytes (%) (Auto) 17.7 % Monocytes (%) (Auto) 11.0 % Eosinophils (%) (Auto) 0.7 % Basophils (%) (Auto) 0.6 % Neutrophils # (Auto) 6.0 TH/MM3 Lymphocytes # (Auto) 1.5 TH/MM3 Monocytes # (Auto) 0.9 TH/MM3 Eosinophils # (Auto) 0.1 TH/MM3 Basophils # (Auto) 0.1 TH/MM3 CBC Comment DIFF FINAL Differential Comment Prothrombin Time 11.5 SEC Prothromb Time International Ratio 1.0 RATIO Activated Partial Thromboplast Time 28.6 SEC Blood Urea Nitrogen 19 MG/DL Creatinine 1.50 MG/DL Random Glucose 170 MG/DL Total Protein 7.8 GM/DL Albumin 3.4 GM/DL Calcium Level 8.4 MG/DL Magnesium Level 1.8 MG/DL Alkaline Phosphatase 75 U/L Aspartate Amino Transf (AST/SGOT) 28 U/L Alanine Aminotransferase (ALT/SGPT) 22 U/L Total Bilirubin 0.8 MG/DL Sodium Level 133 MEQ/L Potassium Level 4.0 MEQ/L Chloride Level 102 MEQ/L Carbon Dioxide Level 22.1 MEQ/L Anion Gap 9 MEQ/L Estimat Glomerular Filtration Rate 46 ML/MIN Lactic Acid Level 1.2 mmol/L Lipase 120 U/L Thyroid Stimulating Hormone 3rd Gen 3.320 uIU/ML MDM Medical Decision Making Medical Screen Exam Complete: Yes Emergency Medical Condition: Yes Medical Record Reviewed: Yes Interpretation(s) CBC & BMP Diagram 01/24/17 15:35 Total Protein 7.8, Albumin 3.4, Calcium Level 8.4 L, Magnesium Level 1.8, Alkaline Phosphatase 75, Aspartate Amino Transf (AST/SGOT) 28, Alanine Aminotransferase (ALT/SGPT) 22, Total Bilirubin 0.8 Last Impressions Chest X-Ray 01/24/17 1525 Signed Impressions: Service Date/Time: Tuesday, January 24, 2017 15:30 - CONCLUSION: 1. Postsurgical features with compensated cardiomegaly. Zheng Núñez MD Abdomen/Pelvis CT 01/24/17 1525 Signed Impressions: Service Date/Time: Tuesday, January 24, 2017 17:30 - CONCLUSION: 1. Nonspecific mural thickening of the distal sigmoid and rectum. Findings are concerning for a nonspecific, mild colitis. 2. Small lipoma at the junction of the second and third portion of the duodenum. 3. 5 mm nonspecific nodule laterally in the left base is unchanged from prior and probably postinflammatory. Sathya Guillen MD lipase WNL UA negative Differential Diagnosis Acute abdomen versus kidney failure versus kidney stone versus kidney infection versus diverticulitis versus liver failure versus gastroenteritis versus obstruction Narrative Course 71-year-old male that presents to the ED for evaluation of back pain, urinary issues, diarrhea. Patient was properly examined and was found to have signs and symptoms of unclear etiology but concerning for kidney disease. Labs and imaging were ordered. Patient was given IV fluids. Labs and imaging showed mild colitis otherwise unremarkable. Patient was reassured. Patient feels improved. Patient the sutures to go home. This time I will treat patient with Flagyl to cover for C. difficile colitis. Patient was given hydrocodone for pain. Told to follow closely with PCP. See ED worsening symptoms. Case was discussed in my attending Dr. Park who is in agreement with discharge and plan. Diagnosis Primary Impression: Acute colitis Patient Instructions: General Instructions Additional Instructions: Take medications as prescribed. Only take pain medication if needed. No urinary to use it. Take antibiotic until completion. Drink plenty of fluids. Prefer soft diet and liquid diet until completely better to improve symptoms and prevent reoccurrence. Follow-up with PCP. See ED for any worsening symptoms. Do not drink or drive while taking pain medication. Med/Other Pt SpecificInfo: Prescription(s) given Scripts Metronidazole (Flagyl) 500 Mg Tab 500 MG PO BID for Infection for 10 Days, #20 TAB 0 Refills Prov: Wally Mcfarland MD 01/24/17 Hydrocodone-Acetaminophen (Hydrocodone-Acetaminophen) 5-325 mg Tab 1 TAB PO Q6H Y for PAIN, #14 TAB 0 Refills Prov: Wally Mcfarland MD 01/24/17 Disposition: 01 DISCHARGE HOME Condition: Stable Nilesh Valenzuela Jan 24, 2017 15:38
[2017-01-24] MEDS ORDERED: MORPHINE SULFATE 4 MG/ML INJ IV PUSH ONE (15:45)
[2017-01-24] MEDS ORDERED: ONDANSETRON HCL 4 MG/2 ML VIAL IV PUSH ONE (15:45)
--- NOTE | 2017-01-24 15:55 | RADRPT ---
EXAM DATE/TIME: 01/24/2017 15:30 [facility] COMPARISON: No previous studies available for comparison. INDICATIONS : Chest pain for 3 days MEDICAL HISTORY : Cardiovascular disease. SURGICAL HISTORY : CABG. ENCOUNTER: Initial ACUITY: 3 days PAIN SCORE: 4/10 LOCATION: Bilateral chest FINDINGS: Median sternotomy wires and postsurgical features of prior CABG. Cardiac silhouette is mildly enlarge d. No significant focal pleural or parenchymal opacities. Bony thorax is intact. CONCLUSION: 1. Postsurgical features with compensated cardiomegaly. Zheng Núñez MD on January 24, 2017 at 15:53 Board Certified Radiologist. This report was verified electronically.
[2017-01-24 16:11] LABS: BASOPHIL # 0.1 TH/MM3 (0-0.2); BASOPHIL % 0.6 % (0.0-2.0); EOSINOPHIL # 0.1 TH/MM3 (0-0.4); EOSINOPHIL % 0.7 % (0.0-4.0); HEMATOCRIT 44.8 % (39.0-51.0); HEMO FLAGS DIFF FINAL; LYMPH % 17.7 % (9.0-44.0); LYMPHOCYTE # 1.5 TH/MM3 (1.0-4.8); MEAN CORPUSCULAR HEMOGLOBIN 29.5 PG (27.0-34.0); MEAN CORPUSCULAR HGB CONC 34.7 % (32.0-36.0); PLATELET COUNT 149 TH/MM3 (150-450); RED BLOOD COUNT 5.27 MIL/MM3 (4.50-5.90); RED CELL DISTRIBUTION WIDTH 13.6 % (11.6-17.2); WHITE BLOOD COUNT 8.6 TH/MM3 (4.0-11.0)
[2017-01-24 16:20] LABS: APTT (PATIENT) 28.6 SEC (24.3-30.1); PROTHROMBIN TIME - PATIENT 11.5 SEC (9.8-11.6)
[2017-01-24 16:26] LABS: BLOOD, URINE MOD (NEG); COMMENT (UR) CULT NOT INDICATED; CULTURE IF INDICATED CULT NOT INDICATED; GLUCOSE,URINE NEG (NEG); GRANULAR CAST, URINE 7 /lpf; HYALINE CAST, URINE 10 /lpf (RARE); KETONE, URINE NEG (NEG); MUCUS URINE MOD /lpf (OCC); NITRITE,URINE NEG (NEG); PH, URINE 5.5 (5.0-8.5); URINE COLOR YELLOW (YELLW/STRAW)
[2017-01-24 16:37] LABS: ALKALINE PHOSPHATASE 75 U/L (45-117); TOTAL BILIRUBIN ADULT 0.8 MG/DL (0.2-1.0)
[2017-01-24 16:50] LABS: ALT (GPT) 22 U/L (12-78); ANION GAP 9 MEQ/L (5-15); AST (GOT) 28 U/L (15-37); BICARBONATE 22.1 MEQ/L (21.0-32.0); BLOOD UREA NITROGEN 19 MG/DL (7-18); CHLORIDE 102 MEQ/L (98-107); GLOMERULAR FILTRATION RATE 46 ML/MIN (>89); MAGNESIUM 1.8 MG/DL (1.5-2.5); SODIUM (NA) 133 MEQ/L (136-145)
[2017-01-24] MEDS ORDERED: IOHEXOL 350 MG/ML 10 ML VIAL (for RAD DIAG) IVCONTRAST ONE (17:44)
[2017-01-24 18:04] VITALS: BP 138/85; PULSE 90; RESP 16; O2SAT 95
--- NOTE | 2017-01-24 18:05 | RADRPT ---
EXAM DATE/TIME: 01/24/2017 17:30 [facility] COMPARISON: CT ABDOMEN & PELVIS W/O CONTRAST, July 16, 2016, 14:29. INDICATIONS : Left flank pain with diarrhea for four days. IV CONTRAST: 100 cc Omnipaque 350 (iohexol) IV ORAL CONTRAST: No oral contrast ingested. RADIATION DOSE: 6.64 CTDIvol (mGy) MEDICAL HISTORY : Cardiovascular disease. Hypertension. Diabetes mellitus type 2. SURGICAL HISTORY : CABG ENCOUNTER: Initial ACUITY: 4 - 6 days PAIN SCALE: 7/10 LOCATION: Left upper quadrant TECHNIQUE: Volumetric scanning of the abdomen and pelvis was performed. Using automated exposure control and ad justment of the mA and/or kV according to patient size, radiation dose was kept as low as reasonably achievable to obtain optimal diagnostic quality images. DICOM format image data is available electro nically for review and comparison. FINDINGS: LOWER LUNGS: 5 mm nodule laterally in the left base is unchanged. Lung bases are otherwise clear. LIVER: Homogeneous density without lesion. There is no dilation of the biliary tree. No calcified gallston es. SPLEEN: Normal size without lesion. PANCREAS: Within normal limits. KIDNEYS: Normal in size and shape. There is no mass, stone or hydronephrosis. ADRENAL GLANDS: Within normal limits. VASCULAR: There is no aortic aneurysm. BOWEL/MESENTERY: Small lipoma the junction of the second and third portion of the duodenum. There is some mural thicke lucretia in the region of the sigmoid extending down into the rectal vault characteristic of a nonspecifi c colitis. This appears to be isolated. No significant diverticular disease, however. ABDOMINAL WALL: Within normal limits. RETROPERITONEUM: There is no lymphadenopathy. BLADDER: No wall thickening or mass. REPRODUCTIVE: Prostate is prominent at 5.1 cm.. INGUINAL: 2.8 cm left inguinal hernia only containing fat. MUSCULOSKELETAL: Within normal limits for patient age. CONCLUSION: 1. Nonspecific mural thickening of the distal sigmoid and rectum. Findings are concerning for a nonsp ecific, mild colitis. 2. Small lipoma at the junction of the second and third portion of the duodenum. 3. 5 mm nonspecific nodule laterally in the left base is unchanged from prior and probably postinflam matory. Sathya Guillen MD on January 24, 2017 at 17:48 Board Certified Radiologist. This report was verified electronically.
[2017-01-24] MEDS ORDERED: metroNIDAZOLE 500 MG INJ 100 ML IV ONE (18:15)
[2017-01-24] MEDS ORDERED: METR-1 PO (18:17)
[2017-01-24] MEDS ORDERED: HYDR-3516 PO (18:17)
== END 2017-01-24 19:46 | disposition home or self-care (01) ==
LOC: NEPE 15:07
DX: K52.9 Noninfective gastroenteritis and colitis, unspecified (principal); D17.5 Benign lipomatous neoplasm of intra-abdominal organs; I51.7 Cardiomegaly; E11.9 Type 2 diabetes mellitus without complications; E78.00 Pure hypercholesterolemia, unspecified
CPT/HCPCS: 71010; 74177; 80053; 81001; 83605; 83690; 83735; 84443; 85025; 85610; 85730; 87040; 96361; 96374; 96375; 99285; J2270; J2405; J7030; Q9967